=== PATIENT | female | born 1985 | race Caucasian/White ===

== ENCOUNTER → 2018-05-16 13:56 | Outpatient (CLI) | payer OTHER, SELFPAY ==
[2018-05-16 17:26] LABS: Chlamydia Trachomatis by PCR Negative (Negative); Neisserai gonorrhoeae by PCR Negative (Negative); Probe Check PASS; Sample Adequacy Control PASS; Specimen Processing Control PASS
[2018-05-20 08:10] LABS: HPV APTIMA, High Risk Negative (Negative)
== END ==
PROVIDERS: Referring Provider Obstetrics & Gynecology; Visit Provider Obstetrics & Gynecology
DX: Z32.01 Encounter for pregnancy test, result positive (principal); Z12.4 Encounter for screening for malignant neoplasm of cervix; Z11.3 Encounter for screening for infections with a predominantly sexual mode of transmission
CPT/HCPCS: 87491; 87591; 88175; G0145

== ENCOUNTER → 2018-06-16 14:26 | Outpatient (CLI) | payer OTHER, SELFPAY ==
[2018-06-16 15:47] LABS: Absolute Lymphocyte Count 1.63 X10^3/ul (0.83-4.51); Absolute Neutrophil Count 4.5 X10^3/uL (2.0-7.7); Basophil# 0.02 X10^3/uL; Basophil% 0.3 % (0-1); Eosinophil# 0.06 X10^3/uL; Eosinophils% 0.9 % (0-5); Hematocrit 35.7 % (37-47); Hemoglobin 11.9 g/dl (12.0-15.0); Lymphocyte # 1.63 X10^3/ul (4.0); Lymphocyte % 24.5 % (19-41); Mean Corp Hgb Conc 33.3 g/gl (32-36); Mean Corpuscular Hgb 29.1 pg (27.0-32.0); Mean Corpuscular Volume 87.3 fL (81-99); Mean Platelet Vol. 10.8 fl (6.2-12.0); Monocyte# 0.41 X10^3/uL; Monocyte% 6.2 % (0-10); Neutrophil # 4.51 X10^3/uL (2.7-7.7); Neutrophil % 67.9 % (47-70); POSITIVE COUNT NO; POSITIVE DIFFERENTIAL NO; POSITIVE MORPHOLOGY NO; Platelet Count 208 K/mm3 (150-450); RBC Distribution Width SD 41.7 fl (35.1-43.9); Red Blood Count 4.09 M/mm3 (4.2-5.4); White Blood Count 6.6 K/mm3 (4.4-11.0)
[2018-06-16 15:57] LABS: Thyroid Stim Hormone (TSH) 0.52 uIU/mL (0.358-3.74)
[2018-06-16 16:05] LABS: Glucose, Dipstick Normal (Normal); Ketone-Dipstick Negative (Negative); Leukocyte Esterase-Dipstick 25 /ul (Negative); Nitrite-Dipstick Negative (Negative); Occult Blood-Urine 50 /ul (Negative); Protein-Dipstick Negative (Negative); Urine Bilirubin Dipstick Negative (Negative); Urine Urobilinogen Normal (Normal); Urine pH 6.5 (5.0 - 8.0)
[2018-06-16 16:07] LABS: Color, Urine Yellow (Yellow); Urine Clarity Clear (Clear)
[2018-06-16 16:30] LABS: Amphetamine Urine VISTA NEGATIVE (<1000 ng/mL); Barbiturate Urine VISTA NEGATIVE (< 200 ng/mL); Benzodiazepine Urine VISTA NEGATIVE (< 200 ng/mL); Cocaine Urine VISTA NEGATIVE (< 300 ng/mL); Ecstacy Urine VISTA NEGATIVE (< 500 ng/mL); Methadone Urine VISTA NEGATIVE (< 300 ng/mL); PCP Urine VISTA NEGATIVE (< 25 ng/mL); THC Urine VISTA NEGATIVE (< 50 ng/mL); Vista UDS pH Range 6
[2018-06-16 16:37] LABS: HIV - WCH Non-Reactive (Nonreactive); Rubella IgG 123.7 IU/mL; Vitamin D,25 Hydroxy 26.4 ng/mL (29.95-100.01)
[2018-06-17 03:51] LABS: Prenatal RPR NONREACTIVE (NONREACTIVE)
[2018-06-18 10:56] LABS: HEPATITIS B SURFACE AG Negative (Negative); Hep C Antibodies <0.1 s/co ratio (0.0-0.9)
== END ==
PROVIDERS: Visit Provider Obstetrics & Gynecology
DX: Z34.81 Encounter for supervision of other normal pregnancy, first trimester (principal)
CPT/HCPCS: 36415; 80307; 81002; 82306; 84443; 85025; 86703; 86762; 86803; 87086; 87088; 87340

== ENCOUNTER → 2018-09-27 08:44 | Outpatient (CLI) | payer OTHER, SELFPAY ==
[2018-09-27 10:41] LABS: Hematocrit 34.1 % (37-47); Hemoglobin 11.3 g/dl (12.0-15.0); Mean Corp Hgb Conc 33.1 g/gl (32-36); Mean Corpuscular Hgb 29.7 pg (27.0-32.0); Mean Corpuscular Volume 89.7 fL (81-99); Mean Platelet Vol. 10.8 fl (6.2-12.0); Platelet Count 208 K/mm3 (150-450); RBC Distribution Width CV 13.9 % (11.6-14.6); Scan Indicated on CBC? Y/N NO; White Blood Count 7.6 K/mm3 (4.4-11.0)
[2018-09-27 10:46] LABS: Glucose Challenge Gest 1H 50g 141 mg/dL (70-140)
== END ==
PROVIDERS: Visit Provider Obstetrics & Gynecology
DX: Z34.83 Encounter for supervision of other normal pregnancy, third trimester (principal)
CPT/HCPCS: 36415; 82950; 85027

== ENCOUNTER → 2018-10-13 06:46 | Outpatient (CLI) | payer OTHER, SELFPAY ==
[2017-05-16 11:35] VITALS: BMI 32.3
[2018-10-13 07:51] LABS: Glucose GTT-Gestation. Fasting 77 mg/dL (<105)
[2018-10-13 08:41] LABS: Glucose GTT-Gestational 1 Hr 185 mg/dL (<190)
[2018-10-13 10:02] LABS: Glucose GTT-Gestational 2 Hr 129 mg/dL (<165)
[2018-10-13 10:53] LABS: Glucose GTT-Gestational 3 Hr 49 L (<145)
== END ==
PROVIDERS: Family Provider Family Medicine; PCP Family Medicine; Referring Provider Obstetrics & Gynecology; Visit Provider Obstetrics & Gynecology
DX: O99.810 Abnormal glucose complicating pregnancy (principal); Z3A.00 Weeks of gestation of pregnancy not specified
CPT/HCPCS: 36415; 82951; 82952

== ENCOUNTER → 2018-11-24 11:56 | Outpatient (CLI) | payer OTHER, SELFPAY | PROVIDERS: Family Provider Family Medicine; PCP Family Medicine; Visit Provider Obstetrics & Gynecology | DX: Z36.85 Encounter for antenatal screening for Streptococcus B (principal) | CPT/HCPCS: 87081 ==

== ENCOUNTER 2018-12-29 00:30 | Inpatient (IN) | payer OTHER, SELFPAY ==
[2017-05-16 11:35] VITALS: BMI 32.3
[2018-12-29] MEDS: Lactated Ringers 1,000 ML 50 ML IV ×2 (00:40→01:45)
[2018-12-29 00:55] LABS: Absolute Lymphocyte Count 2.33 X10^3/ul (0.83-4.51); Absolute Neutrophil Count 6.4 X10^3/uL (2.0-7.7); Basophil# 0.03 X10^3/uL; Basophil% 0.3 % (0-1); Eosinophil# 0.13 X10^3/uL; Eosinophils% 1.4 % (0-5); Hematocrit 34.5 % (37-47); Hemoglobin 11.7 g/dl (12.0-15.0); Lymphocyte # 2.33 X10^3/ul (4.0); Lymphocyte % 24.4 % (19-41); Mean Corp Hgb Conc 33.9 g/gl (32-36); Mean Corpuscular Hgb 28.7 pg (27.0-32.0); Mean Corpuscular Volume 84.8 fL (81-99); Mean Platelet Vol. 10.6 fl (6.2-12.0); Monocyte# 0.67 X10^3/uL; Neutrophil # 6.36 X10^3/uL (2.7-7.7); Neutrophil % 66.6 % (47-70); POSITIVE COUNT NO; POSITIVE DIFFERENTIAL NO; POSITIVE MORPHOLOGY NO; Platelet Count 248 K/mm3 (150-450); RBC Distribution Width CV 13.4 % (11.6-14.6); RBC Distribution Width SD 40.8 fl (35.1-43.9); Red Blood Count 4.07 M/mm3 (4.2-5.4); White Blood Count 9.6 K/mm3 (4.4-11.0)
[2018-12-29] MEDS: fentaNYL-bupivacaine (epidural) 100 ML BAG EPIDURAL (01:39)
--- NOTE | 2018-12-29 02:10 | DCINST_ITS ---
Discharge Diet: No Restrictions Discharge Activity: Return to Normal Activity, May Drive, May Shower Return to work on:: 02/13/19 May shower in (days): 0 May resume sexual activity in: 4-6 weeks Call your doctor if your incision/area has: Sudden Increased Bleeding, Increased Pain/ Swelling, Foul Smelling Discharge Call your doctor if you observe: Fever of 101 or Higher, Inability to urinate, Inability to have a bowel movement, Using more than one pad per hour, Shortness of breath, Chest pain, Calf discomfort, Uncontrolled pain Cleanse incision/area with: Soap & Water Additional Instructions: If you experience any of the following, contact your healthcare provider. * Bleeding that soaks a pad every hour for 2 hours * Fever 100.4 or higher * Unrelieved incision or abdominal pain * Swelling, redness, discharge or bleeding from your incision or episiotomy site * Your incision begins to separate * Problems urinating (including inability to urinate or burning while urinating). * Visual changes * Severe headache * Flu-like symptoms * Pain or redness in one of both of your breasts * Pain, warmth, tenderness or swelling in your legs, especially the calf area * Frequent nausea and vomiting * Symptoms of depression or anxiety If you experience any of the following, call 911 or go to the nearest Emergency Room. * Chest pain * Problems breathing * Seizure activity * Partial or complete paralysis of a body part, slurred speech, weakness or drooping of the face, or a sudden inability to walk or hold your balance Allergies/Adverse Reactions: Allergies Sulfa (Sulfonamide Antibiotics) Allergy (Verified 02/27/16 15:29) Hives Medications to take at Discharge Ibuprofen [Motrin] 800 mg PO TID PRN PRN #30 tablet 05/18/17 Ibuprofen [Motrin] 600 mg PO Q6H PRN PRN #30 tab 12/29/18 Pnv No.95/Ferrous Fum/Folic AC [ Formula] 1 ea PO DAILY #30 tab 12/29/18 The following prescriptions were given: Ibuprofen [Motrin] 600 mg PO Q6H PRN PRN #30 tab PRN Reason: pain or cramping Pnv No.95/Ferrous Fum/Folic AC [ Formula] 1 ea PO DAILY #30 tab Please Follow Up With: Demi Padilla MD When: 6 weeks Primary Care Physician: Braxton Wilkes III, MD [Primary Care Provider] - Test Results: Test results from this visit will be discussed in further detail at your follow- up appointment, if applicable. Proposed Discharge Date: 12/31/18
--- NOTE | 2018-12-29 02:10 | PCM.OPRPT ---
Problem List (1) Active labor at term Status: Acute (2) Previous section Status: Chronic Vaginal Delivery Maternal Presentation: Active Labor Presents at 41w3d ega in active labor. History of previous C/S and one subsequent vaginal delivery Amniotic Membrane Rupture Type: Artificial Rupture of Membrane time: 0200 Amniotic Fluid Description: Clear Final LINDA: 12/20/18 Final LINDA Source: US <20 weeks Gestational age: 41 Weeks and 2 Days Date of Procedure: 12/29/18 Pre-Operative Diagnosis: labor Post-Operative Diagnosis: same Surgery/ Procedure Performed: Spontaneous Vaginal Delivery Anesthesiologist: Michael Harrison Type of Anesthesia: Epidural Description of Procedure: Progressed to FD then pushed for about 20 minutes to delivery a live male without complication. There was a loose nuchal cord that was reduced at delivery. Delayed cord clamping was employed. The cord was clamped and cut. There was an active cry within the first few seconds after delivery. The placenta delivered spontaneously intact. The uterus contracted well. Inspection revealed an intact cervix, vaginal, and perineum. Presentation: Vertex Placental Delivery Description: Spontaneous Placenta Disposition: [facility] Percentage of Placenta Abruption: 0 Cord Vessel Description: 3 Vessels Nuchal Cord Compression: Without compression Cord Entanglement: Around neck x 1, loose Estimated Blood Loss: 200cc Infant A gender: Male (1 minute): 9 (5 minute): 9 Episiotomy Description: None Laceration: None Medications given after delivery: IV Pitocin Complications: None
[2018-12-29] MEDS: Oxytocin 30 units/NS 500 ml 30 UNITS/500 ML IV.SOLN 334 UNITS IV (02:33)
[2018-12-29 02:54] VITALS: BMI 30.3
[2018-12-29] MEDS: Oxytocin 30 units/NS 500 ml 30 UNITS/500 ML IV.SOLN 167 UNITS IV (03:05)
[2018-12-29 04:30] VITALS: BP 114/53; PULSE 58; RESP 16; TEMP 36.7; O2SAT 99
[2018-12-29] MEDS: Ibuprofen 600 MG Tablet PO ×2 (07:21→14:22)
[2018-12-29 09:00] VITALS: BP 118/62; PULSE 56; RESP 16; TEMP 36.5
[2018-12-29] MEDS: Acetaminophen 500 MG Tablet 1000 MG PO (10:11)
[2018-12-29 13:00] VITALS: BP 125/73; PULSE 49; RESP 16; TEMP 36.7
[2018-12-29 16:26] VITALS: BP 123/52; PULSE 54; RESP 16; TEMP 36.6
[2018-12-29 20:50] VITALS: BP 120/65; PULSE 61; RESP 18; TEMP 36.8
[2018-12-30 00:16] VITALS: BP 123/60; PULSE 51; RESP 16; TEMP 36.5
[2018-12-30 04:51] VITALS: BP 113/62; PULSE 48; RESP 16; TEMP 36.6
[2018-12-30 05:54] LABS: Hematocrit 31.6 % (37-47); Hemoglobin 10.4 g/dl (12.0-15.0); Mean Corp Hgb Conc 32.9 g/gl (32-36); Mean Corpuscular Hgb 28.4 pg (27.0-32.0); Mean Corpuscular Volume 86.3 fL (81-99); Mean Platelet Vol. 10.3 fl (6.2-12.0); Platelet Count 178 K/mm3 (150-450); RBC Distribution Width CV 13.5 % (11.6-14.6); RBC Distribution Width SD 41.4 fl (35.1-43.9); Red Blood Count 3.66 M/mm3 (4.2-5.4); White Blood Count 7.2 K/mm3 (4.4-11.0)
[2018-12-30 05:55] LABS: Scan Indicated on CBC? Y/N NO
--- NOTE | 2018-12-30 07:35 | PCM.PN.OB ---
Patient Problems: Active and Suspected Problems Active labor at term (Acute) Subjective: PPD#1 Doing well. Nursing. Would like RX RF for her compounded nipple cream, Nipple Reviving Ointment No concerns voiced otherwise. - Physical Exam General: Alert, Oriented x3, Cooperative, No apparent distress HEENT: Atraumatic Neck: Supple Neurological: Cranial nerves II-XII grossly intact Psych/Mental Status: Normal Affect Vital Signs Temp Pulse Resp BP Pulse Ox 97.9 F 48 L 16 113/62 99 12/30/18 04:51 12/30/18 04:51 12/30/18 04:51 12/30/18 04:51 12/29/18 04:30 Oxygen Delivery Method Room Air Weight: 85.275 kg Body Mass Index (BMI) 30.3 Intake and Output for Last 24 Hours 12/28/18 12/29/18 12/30/18 23:59 23:59 23:59 Intake Total 1521 / 1521 Output Total 1000 / 1000 Balance 521 / 521 Laboratory Tests Past 24 Hrs 12/30/18 05:45 WBC 7.2 RBC 3.66 L Hgb 10.4 L Hct 31.6 L MCV 86.3 MCH 28.4 MCHC 32.9 RDW 13.5 RDW Differential 41.4 Plt Count 178 MPV 10.3 Medical Necessity - Tobacco Use Smoking Status: Never smoker Assessment/Plan All Active Problems Active labor at term (Acute) Vaginal after () (Acute) PPD#1 Stable pp. Dischg home this afternoon if remains stable (pt request)
[2018-12-30 09:03] VITALS: BP 101/52; PULSE 63; RESP 18; TEMP 36.7; O2SAT 97
[2018-12-30 14:08] VITALS: BP 121/69; PULSE 53; RESP 18; TEMP 37; O2SAT 97
== END 2018-12-30 16:45 | disposition home or self-care (01) | DRG 807 ==
PROVIDERS: Admitting Provider Obstetrics & Gynecology; Family Provider Family Medicine; PCP Family Medicine; Referring Provider Obstetrics & Gynecology; Visit Provider Obstetrics & Gynecology
DX: O48.0 Post-term pregnancy (principal); Z37.0 Single live birth; O34.219 Maternal care for unspecified type scar from previous cesarean delivery; O69.81X0 Labor and delivery complicated by cord around neck, without compression, not applicable or unspecified; Z3A.41 41 weeks gestation of pregnancy
CPT/HCPCS: 59025; 59050; 85025; 85027; 86850; 86900; 99218; J7120; G0378

== ENCOUNTER → 2021-06-11 16:23 | Outpatient (CLI) | payer OTHER, SELFPAY ==
[2021-06-11 17:39] LABS: Absolute Lymphocyte Count 1.79 X10^3/uL (0.83-4.51); Absolute Neutrophil Count 4.1 X10^3/uL (2.0-7.7); Basophil# 0.06 X10^3/uL; Basophil% 0.9 % (0-1); Eosinophils% 4.4 % (0-5); Hematocrit 36.8 % (37-47); Hemoglobin 12.2 g/dL (12.0-15.0); Lymphocyte # 1.79 X10^3/ul (0.83-4.51); Lymphocyte % 26.2 % (19-41); Mean Corp Hgb Conc 33.2 g/dL (32-36); Mean Corpuscular Volume 87.6 fL (81-99); Mean Platelet Vol. 10.6 fl (6.2-12.0); Monocyte# 0.56 X10^3/uL; Monocyte% 8.2 % (0-10); NRBC Flagged by Analyzer 0 % (0-5); Neutrophil # 4.08 X10^3/uL (2.7-7.7); Neutrophil % 59.9 % (47-70); Platelet Count 219 K/mm3 (150-450); RBC Distribution Width CV 12.8 % (11.6-14.6); RBC Distribution Width SD 41.1 fl (35.1-43.9); White Blood Count 6.8 K/mm3 (4.4-11.0)
[2021-06-11 17:48] LABS: Color, Urine Yellow (Yellow); Glucose, Dipstick Normal (Normal); Ketone-Dipstick Negative (Negative); Leukocyte Esterase-Dipstick Negative /ul (Negative); Nitrite-Dipstick Negative (Negative); Occult Blood-Urine Negative /ul (Negative); Protein-Dipstick Negative (Negative); Specific Gravity, Urine 1.015 (1.002-1.030); Urine Bilirubin Dipstick Negative (Negative); Urine Clarity Sl. Cloudy (Clear); Urine Urobilinogen Normal (Normal)
[2021-06-11 18:08] LABS: Amphetamine Urine VISTA NEGATIVE (<1000 ng/mL); Barbiturate Urine VISTA NEGATIVE (< 200 ng/mL); Benzodiazepine Urine VISTA NEGATIVE (< 200 ng/mL); Cocaine Urine VISTA NEGATIVE (< 300 ng/mL); Ecstacy Urine VISTA NEGATIVE (< 500 ng/mL); Methadone Urine VISTA NEGATIVE (< 300 ng/mL); PCP Urine VISTA NEGATIVE (< 25 ng/mL); THC Urine VISTA NEGATIVE (< 50 ng/mL); Vista UDS pH Range 6
[2021-06-12 08:55] LABS: HIV - WCH Non-Reactive (Nonreactive); Hepatitis B Surface Antigen Non-Reactive (Nonreactive); Hepatitis C Antibody Non-Reactive (Nonreactive); Rubella IgG Reactive (Nonreactive); Syphilis Antibodies Non-reactive
[2021-06-14 10:08] LABS: Chlamydia By Nucleic Acid AMP Negative (Negative)
[2021-06-14 10:15] LABS: Gonococcus By Nucleic Acid AMP Negative (Negative)
[2021-06-17 16:31] LABS: HPV APTIMA, High Risk Negative (Negative)
== END ==
PROVIDERS: PCP Family Medicine; Visit Provider Obstetrics & Gynecology
DX: Z34.82 Encounter for supervision of other normal pregnancy, second trimester (principal); Z12.4 Encounter for screening for malignant neoplasm of cervix; Z11.3 Encounter for screening for infections with a predominantly sexual mode of transmission
CPT/HCPCS: 36415; 80307; 81002; 84443; 85025; 86703; 86762; 86780; 86803; 87086; 87088; 87340; 87491; 87591; 87624; 88175; G0145

== ENCOUNTER 2021-10-01 13:22 | Outpatient (CLI) | payer OTHER, SELFPAY ==
[2021-10-01 13:55] LABS: Hematocrit 32.7 % (37-47); Hemoglobin 11.4 g/dL (12.0-15.0); Mean Corp Hgb Conc 34.9 g/dL (32-36); Mean Corpuscular Hgb 31.4 pg (27.0-32.0); Mean Corpuscular Volume 90.1 fL (81-99); Mean Platelet Vol. 10.5 fl (6.2-12.0); Platelet Count 221 K/mm3 (150-450); RBC Distribution Width CV 13.4 % (11.6-14.6); RBC Distribution Width SD 44.1 fl (35.1-43.9); Red Blood Count 3.63 M/mm3 (4.2-5.4); White Blood Count 8.3 K/mm3 (4.4-11.0)
[2021-10-01 14:01] LABS: Glucose Challenge Gest 1H 50g 103 mg/dL (70-140)
[2021-10-01 17:34] LABS: Ferritin 6 ng/mL (8-252)
== END 2021-10-01 23:59 | disposition home or self-care (01) ==
LOC: WOBLAB 13:23
PROVIDERS: Visit Provider Obstetrics & Gynecology
DX: O99.02 Anemia complicating childbirth (principal); D50.8 Other iron deficiency anemias; Z3A.00 Weeks of gestation of pregnancy not specified
CPT/HCPCS: 36415; 82728; 82950; 85027

== ENCOUNTER → 2021-11-26 | Outpatient (CLI) | payer OTHER, SELFPAY | END | disposition home or self-care (01) | LOC: LABSPEC 14:55 | PROVIDERS: Visit Provider Obstetrics & Gynecology | DX: Z36.85 Encounter for antenatal screening for Streptococcus B (principal) | CPT/HCPCS: 87081 ==

== ENCOUNTER 2021-12-14 21:45 | Outpatient (CLI) | payer OTHER, SELFPAY ==
[2021-12-14 21:56] VITALS: TEMP 37.2
[2021-12-14 21:57] VITALS: BP 129/60; PULSE 90
[2021-12-14 22:26] VITALS: BMI 31.0
[2021-12-14] MEDS: Acetaminophen 500 MG Tablet 1000 MG PO (23:18)
[2021-12-14 23:57] VITALS: TEMP 37.2
--- NOTE | 2021-12-15 10:03 | OB.TRI.NOTE ---
HPI - General HPI Narrative MU SANTOS, is a 36 F who presents to labor and delivery with some contractions and low back pain at 38 weeks 6 days gestation. care remarkable for a prior section. PFSH PFSH Home Medications PNV cmb#95-ferrous fumarate-FA 1 ea PO DAILY #30 tab 12/29/18 [Rx Last Taken Unknown] Allergy/AdvReac Type Severity Reaction Status Date / Time Sulfa (Sulfonamide Allergy Hives Verified 12/14/21 22:06 Antibiotics) Social History Smoking Status: Never smoker History Elective abortions Hx Para 2 Spontaneous abortions Hx # Term Pregnancies Ectopic pregnancies Hx # Pregnancies Multiple births # of living children NST FHR Rate Baby A NST Reactive:: Yes FHR Category:: Category I Uterine Activity:: Some contractions noted on monitor Assessment & Plan (1) False labor, antepartum: PLAN: 38 weeks 6-day gestation with false labor. Cervix unchanged after observing for about 2 hours. Reactive nonstress test. Will discharge to home with routine labor instructions.
== END 2021-12-15 00:08 | disposition home or self-care (01) ==
LOC: WPOUT 21:50 → WP 21:50
PROVIDERS: Visit Provider Obstetrics & Gynecology
DX: O47.1 False labor at or after 37 completed weeks of gestation (principal); Z3A.38 38 weeks gestation of pregnancy; O26.23 Pregnancy care for patient with recurrent pregnancy loss, third trimester; O34.219 Maternal care for unspecified type scar from previous cesarean delivery
CPT/HCPCS: 59025; 59050; 99218; G0378

== ENCOUNTER 2021-12-27 18:50 | Inpatient (IN) | payer OTHER, SELFPAY ==
[2021-12-27] VITALS (18 sets, daily range): BP systolic 120–143; BP diastolic 57–71; PULSE 55–90; TEMP 36.6–36.9; O2SAT 97–100; BMI 30.7
[2021-12-27] MEDS: Lactated Ringers 1,000 ML 50 ML IV (19:05)
[2021-12-27] MEDS: Lactated Ringers 500 ML 999 ML IV (19:13)
--- NOTE | 2021-12-27 19:18 | PCM.HP.BLA ---
History and Physical Date of Admission: 12/27/21 ACOG ANTEPARTUM RECORD - HISTORY AND PHYSICAL (12/27/2021) Name: ELVA BLANKENSHIP History of this : This is a 36 year old [id number] presents at 40 wks + 5 days gestation in active labor. OB Physician: Demi Santos MD [place] Physician: [facility] [place] ...................................................................... : 1985 Age: 36 Address: [address] [place] [address] Phone: [phone] Insurance Carrier: [employer] [id number] Emergency Contact: ...................................................................... Final LINDA: 12/22/21 By Ultrasound: 11 weeks 4 days PARITY: (G-Total Pregnancies P-Fullterm,Premature,Induced AB,Spont AB, Ectopics, Multiple,Living) LINDA CONFIRMATION: By LMP: 03/17/21 Initial Exam: 05/13/17 By First Ultrasound Exam: 05/07/17 Final LINDA: 12/22/21 OB PROBLEM LIST: EPDS 0. ALLERGIC TO SULFA! Prior C/S x 1, followed by 2 VBACS ALLERGIES: Sulfa (Sulfonamide Antibiotics) Hives and/or rash MEDICATIONS: ferrous sulfate 325 mg (65 mg iron) tablet 1 po bid + DHA 28 mg iron- 975 mcg-200 mg combo pack daily SOCIAL HISTORY: Smoking - Never Alcohol Use - socially not while Diet - balanced Diet, One cup of coffee daily and Water intake 1-2 liters Lifestyle - Exercise - active and Boot camp class twice weekly. 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 Illicit Drug Use - denies use of street drugs Sexual Activity - Residence - lives with Place of - [place], [place] Hours Worked - 32 hrs per week Spouse-Sig Other Name - Casey Blankenship Spouse-Sig Other Occupation - [employer] Spouse-Sig Other Phone No - [phone] Children Name(s) - Roberto '16, Swapna '17, Jorge(19) PRIOR DELIVERY HISTORY DEL DATE GEST LAB WT LB WT OZ TYPE ANES LABOR TX 08 May 25 41 8 7 7 Vag Epidural No Feb 21 38 10 7 6 C-Sec General No December 25 41 4 7 14 Vag Epidural No ANTEPARTUM FLOW CHART VISIT GE RTC FU F F OR U U DATE WK MD WKS HT PN HR M SS BP ED WT OR GL D EF ST __ ____ ___ __ __ ___ __ __ __ ___ __ __ __ ___ __ December SHM 1 38 V + + 100/64 sl 193 - - 3 50 -3 December SHM 1 39 V + + 120/76 0 193 - - 2 50 -3 03 December JM 1 38 V + + 114/66 sl 195 - - 26 Nov 37 SHM 1 37 V + + 100/68 sl 195 - - 20 Nov 36 SHM 1 36 ? + + 116/66 0 191 - - 1+ 50 -5 05 Nov 34 SHM 2 34 B + + 110/62 0 188 - - Oct JM 2 32 V + + 104/60 0 187 - - 23 Oct 06 SHM 2 28 V + + 100/58 0 188 tr - Sep 01 SHM 4 24 ? + + 90/50 o 181 ne ne Jul 28 SHM 4 20 + + 118/60 0 175 - - ANTEPARTUM NOTE(S): Dec 23 2021: uncomfortable Dec 16 2021: see note Dec 09 2021: Dec 02 2021: see note Nov 26 2021: Nov 11 2021: no concerns Oct 28 2021: Oct 01 2021: doing well Sep 02 2021: Aug 07 2021: Sono Today, FM noted, US OK COMPREHENSIVE ANTEPARTUM NOTE(S): Dec 23 2021: Membranes stripped. Declines IOL, continue expectant management with NST next week if undelivered. Dec 16 2021: Cold vs allergy sx. Advised trial of Zyrtec. FM, labor, SROM reviewed. LMT Dec 16 2021: Seen in L over the weekend 2cm dilation. SVE unchanged today. Preeclampsia, labor, FM precautions. Dec 09 2021: H taken to OB. tkg Dec 09 2021: Elva is 38w1d here for PNV good FM slight edema. No concerns would like cervical check. BR Dec 09 2021: 38wks, no complaints. JM Dec 02 2021: Declines cervix ck today. Reviewed FM, SROM, and labor. Planning . Consider cervix ck next week. LMT Dec 02 2021: US today, EFW 3077g (52nd%), RANDI 23.5cm, MBP 7cm. BPP 8/8. CEPHALIC. Will plan US in labor. TOLAC planned. Nov 26 2021: Elva is 36w2d here for PNV good FM no edema. GBS LARC today. No concerns. Would like cervix checked. BR Nov 26 2021: Suspect variable lie. US next visit to confirm position, RANDI. Labor, ROM, FM precautions. TOLAC planned. Pt desires tubal sterilization if has unplanned section. Recommend bilateral salpingectomy - risks, benefits reviewed - pt understands permanence. Nov 11 2021: Elva is here for a pnv at 34/1. Good FM. No edema present. Denies questions/ concerns. Discussed Tdap vaccine. MK Oct 28 2021: Elva is 32w1d here for PNV good FM no edema doing well no concerns. BR Oct 28 2021: 32 weeks, no complaints. JM Oct 01 2021: Reviewed FM, PTL, PROM. Encouraged Tdap vaccine. GCT, CBC today. LMT Oct 01 2021: Discussed PPBC, pt considering if desires tubal sterilization if has unplanned C/S. Sep 02 2021: NOB NURSE VISIT-- Elva is a G 4 P 3 w LINDA 12-22-[address] [facility] [place] w epidural, using [facility] for post disch ped care and to breastfeeed. Her first pg was a PCS and she's had two successful VBACs since then. Her last labor was only four hours long. She works 32h/w at [employer]. Casey is a brito. They're pleased with this planned . Their children Aug 07 2021: Doing well, no complaints. Anatomy scan today, wnl, EFW 84th%, SEX unknown. No previa, ok for . NEW Jun 11 2021: Elva is here for missed menses appt. She relates LMP of 8/9, +UPT today in office, approx EDC 12/22/21 which makes her 12 weeks and 2 days. She relates her nausea is improving but is still pretty tired. Otherwise doing well. She plans a again, successful x2. Educational materials are provided and reviewed. Encouraged healthy diet, increased po fluids as tolerated, and at least 30 kylie Jun 11 2021: as above. Elva is doing well. Notes fatigue, but no other complaints. Denies spotting or painfulness. She has hx LTCS followed by 2 VBACs, desires . Physically active, exercises several times a week with boot camp and notes she is already modifying exercises for . She has no plans for travel this . Did not receive the COVID19 vaccination, is on the fence at this time. m REVIEW OF SYSTEMS: GENERAL - Denies fever, or chills SKIN - Denies rash, new skin lesions, or change in moles EYES - Denies blurred vision, or change in visual acuity EARS - Denies ear pain, or difficulty hearing NOSE - Denies nasal congestion, discharge, or bleeding MOUTH - Denies sore throat, or difficulty swallowing NECK - Denies pain or swelling RESPIRATORY - Denies shortness of breath, cough, wheezing CARDIOVASCULAR - Denies palpitations, chest pain, orthopnea, PND, peripheral edema, syncope or claudication GASTROINTESTINAL - Denies nausea, vomiting, diarrhea, constipation, Denies abdominal pain, melena and or bright red blood GENITOURINARY - Denies dysuria, frequency of urination, urgency, or hesitancy MUSCULOSKELETAL - Denies joint or muscle pain, or back pain NEUROLOGICAL - Denies localized numbness, weakness, or tingling PSYCHIATRIC - Denies depression, anxiety, substance abuse or suicide attempts ENDOCRINE - Denies heat or cold intolerance, weight loss or gain, increasing thirst HEMATO-IMMUNOLOGIC - Denies easy bruising, bleeding, oral ulcerations or recurrent infections GENETICS SCREENING: Age 35+ years: No Thalassemia: No Neural Tube Defect: No Down Syndrome: No CHAPO-SACHS: No Sickle Cell Disease: No Hemophilia: No Musc. Dystrophy: No Cystic Fibrosis: No-declines screening [place] Chorea: No Mental Retardation: No Fragile X: No Other genetic: No Other defects: No SABs/still births: No Drugs since LMP: No INFECTION HISTORY: High risk AIDS: No High risk Hepatitis: No Exposed to TB: No Exposed to Herpes: No Rash/viral illness since LMP: No History of STD: No MENSTRUAL HISTORY: *Menses Amount/Duration: normal amountMenses Regularity: RegularFrequency: monthlyMenarche (Age Onset): 14* PAST SUMMARY: PARITY: 1. Total Pregnancies............ 4 2. Full Term Pregnancies........ 3 3. Premature.................... 0 4. Abortions - Induced.......... 0 5. Abortions - Spontaneous...... 0 6. Ectopics..................... 0 7. Multiple Births.............. 0 8. Living Children.............. 3 PAST #1: Date of :.................. 02/27/16 Gestation Weeks:................ 38 Length of labor(hours):......... 10 Sex:............................ M Weight-lbs:............... 7 Weight-oz:................ 6 Type of Delivery:............... C-Sect Type of Anesthesia:............. General Place of Delivery:.............. [facility] Treatment of Labor?:.... No Comment: NON-REASSURING FHT'S PAST #2: Date of :.................. 05/16/17 Gestation Weeks:................ 41 Length of labor(hours):......... 8 Sex:............................ F Weight-lbs:............... 7 Weight-oz:................ 7 Type of Delivery:............... Vag Type of Anesthesia:............. Epidural Place of Delivery:.............. [place] Treatment of Labor?:.... No Comment: PAST #3: Date of :.................. 12/29/18 Gestation Weeks:................ 41 Length of labor(hours):......... 4 Sex:............................ M Weight-lbs:............... 7 Weight-oz:................ 14 Type of Delivery:............... Vag Type of Anesthesia:............. Epidural Place of Delivery:.............. [place] Treatment of Labor?:.... No Comment: NONE PHYSICAL EXAMINATION General Appearence: 36 yo female in no acute distress Vital Signs: AF, VSS Heart: RRR without rubs or gallops Lungs: CTA x 2 Breasts: deferred Abdomen: gravid Pelvis: Cervix: 6/90 Presentation: cephalic Station: -2 Fetus: Size: AGA Movement: present Heart: present LAB TEST(S) ORDERED SINCE:03/27/21 06/17/2021 PAP IG HPV APTIMA 16/18,45 06/14/2021 CHLAMYDIA/GC ANETTE APTIMA 06/13/2021 URINE CULTURE 06/12/2021 RUBELLA IGG 06/12/2021 L509.8000 06/12/2021 HIV - [facility] 06/12/2021 HEPATITIS C ANTIBODY 06/12/2021 HEPATITIS B SURFACE ANTIGEN 06/11/2021 URINE DRUG SCREEN (VISTA) 06/11/2021 URINALYSIS, ROUTINE (DIPSTICK) 06/11/2021 THYROID STIM HORMONE (TSH) 06/11/2021 T AND S-NO CHARGE W/PNP 06/11/2021 CBC W/DIFF, AUTOMATED 11/29/2021 RULE OUT BETA STREP (GRP. B) 10/01/2021 GLUCOSE CHALLENGE GEST 1H 50G 10/01/2021 FERRITIN 10/01/2021 CBC-COMPLETE BLOOD CNT NO DIFF == ==== Order Observation Description Value Ref_Range A* Site == ==== RULE OUT BETA S NOTE ALLAN FERRITIN NOTE ALLAN FERRITIN FERRITIN 6 ng/mL 8-252 L ML GLUCOSE CHALLEN NOTE ALLAN GLUCOSE CHALLEN GLU GEST 50G 1H 103 mg/dL 70-140 ML CBC-COMPLETE BL NOTE ALLAN CBC-COMPLETE BL WBC 8.3 K/mm3 4.4-11.0 ML CBC-COMPLETE BL RBC 3.63 M/mm3 4.2-5.4 L ML CBC-COMPLETE BL HGB 11.4 g/dL 12.0-15.0 L ML CBC-COMPLETE BL HCT 32.7 37-47 L ML CBC-COMPLETE BL MCV 90.1 fL 81-99 ML CBC-COMPLETE BL MCH 31.4 pg 27.0-32.0 ML CBC-COMPLETE BL MCHC 34.9 g/dL 32-36 ML CBC-COMPLETE BL RDW CV 13.4 11.6-14.6 ML CBC-COMPLETE BL RDW SD 44.1 fl 35.1-43.9 H ML CBC-COMPLETE BL PLT 221 K/mm3 150-450 ML CBC-COMPLETE BL MPV 10.5 fl 6.2-12.0 ML URINE CULTURE NOTE ALLAN HEPATITIS C ANT NOTE ALLAN HEPATITIS C ANT HEPATITIS C AB Non-Reactive Nonreactive ML Non Reactive: < 0.8 Equivocal: >/= 0.8 to < 1.0 Reactive: >/= 1.0 The CDC recommends that a reactive/equivocal HCV antibody result be followed up by the HCV Nucleic Acid Amplification test (310007) HEPATITIS B ALEX NOTE ALLAN HEPATITIS B ALEX HEP B SURF AG Non-Reactive Nonreactive ML HIV - [facility] [place] NOTE ALLAN HIV - [facility] [place] HIV Non-Reactive Nonreactive ML L509.8000 NOTE ALLAN L509.8000 SYPHILIS ABS Non-reactive ML RUBELLA IGG NOTE ALLAN RUBELLA IGG RUBELLA IGG Reactive Nonreactive ML Antibody Results Interpretation of Immune Status Non Reactive Presumed Non-Immune Equivocal Equivocal Reactive Presumed Immune PN N [facility]~[address] [place], [address]~ T AND AB SCREEN GEL NEGATIVE ML URINE DRUG SCRE NOTE ALLAN URINE DRUG SCRE VISTA UDS PH 6 ML URINE DRUG SCRE AMPHETAMINES NEGATIVE <1000 ng/mL ML URINE DRUG SCRE BARBITIURATES NEGATIVE < 200 ng/mL ML URINE DRUG SCRE BENZODIAZIPINE NEGATIVE < 200 ng/mL ML URINE DRUG SCRE COCAINE NEGATIVE < 300 ng/mL ML URINE DRUG SCRE ECSTACY NEGATIVE < 500 ng/mL ML URINE DRUG SCRE METHADONE NEGATIVE < 300 ng/mL ML URINE DRUG SCRE OPIATES NEGATIVE < 300 ng/mL ML URINE DRUG SCRE PCP NEGATIVE < 25 ng/mL ML URINE DRUG SCRE THC NEGATIVE < 50 ng/mL ML THYROID STIM HO NOTE ALLAN THYROID STIM HO TSH 0.30 uIU/mL 0.358-3.74 L ML URINALYSIS, ROU NOTE ALLAN URINALYSIS, ROU COLOR Yellow Yellow ML URINALYSIS, ROU URINE CLARITY Sl. Cloudy Clear ML URINALYSIS, ROU GLUCOSE, UR Normal mg/dl Normal ML URINALYSIS, ROU BILIRUBIN URINE Negative mg/dL Negative ML URINALYSIS, ROU KETONE UR Negative mg/dl Negative ML URINALYSIS, ROU SP.GR. DIPSTX 1.015 1.002-1.030 ML URINALYSIS, ROU PH UR 7.0 5.0 - 8.0 ML URINALYSIS, ROU PROT DIPSTX Negative mg/dl Negative ML URINALYSIS, ROU UROBILI Normal mg/dl Normal ML URINALYSIS, ROU NITRITE Negative Negative ML URINALYSIS, ROU OCCULT BLOOD-UR Negative /ul Negative ML URINALYSIS, ROU LEUK ESTERASE Negative /ul Negative ML CBC W/DIFF, AUT NOTE ALLAN CBC W/DIFF, AUT WBC 6.8 K/mm3 4.4-11.0 ML CBC W/DIFF, AUT RBC 4.20 M/mm3 4.2-5.4 ML CBC W/DIFF, AUT HGB 12.2 g/dL 12.0-15.0 ML CBC W/DIFF, AUT HCT 36.8 37-47 L ML CBC W/DIFF, AUT MCV 87.6 fL 81-99 ML CBC W/DIFF, AUT MCH 29.0 pg 27.0-32.0 ML CBC W/DIFF, AUT MCHC 33.2 g/dL 32-36 ML CBC W/DIFF, AUT RDW CV 12.8 11.6-14.6 ML CBC W/DIFF, AUT RDW SD 41.1 fl 35.1-43.9 ML CBC W/DIFF, AUT PLT 219 K/mm3 150-450 ML CBC W/DIFF, AUT MPV 10.6 fl 6.2-12.0 ML CBC W/DIFF, AUT NEUT% 59.9 47-70 ML CBC W/DIFF, AUT LY% 26.2 19-41 ML CBC W/DIFF, AUT MONO% 8.2 0-10 ML CBC W/DIFF, AUT EO% 4.4 0-5 ML CBC W/DIFF, AUT BASO% 0.9 0-1 ML CBC W/DIFF, AUT IG% 0.400 0.0-0.9 ML IG% - Immature Granulocytes (promyelocytes, myelocytes and metamyelocytes) > 1% indicates that a LEFT SHIFT is Present. CBC W/DIFF, AUT ABSOLUTE NEUT 4.1 X10 3/uL 2.0-7.7 ML CBC W/DIFF, AUT ABSOLUTE LYMPH 1.79 X10 3/uL 0.83-4.51 ML CBC W/DIFF, AUT NUCLEATED RBC 0 0-5 ML PAP IG HPV APTI NOTE ALLAN PAP IG HPV APTI DIAG Comment . [facility] NEGATIVE FOR INTRAEPITHELIAL LESION OR MALIGNANCY. PAP IG HPV APTI ADEQ Comment . [facility] Satisfactory for evaluation. Endocervical and/or squamous metaplastic cells (endocervical component) are present. PAP IG HPV APTI PERFORM Comment . [facility] Antoinette Rodríguez, Supervisory Switchboard Receptionist (ASCP) This liquid based ThinPrep(R) pap test was screened with the use of an image guided system. PAP IG HPV APTI COMM . . LCI PAP IG HPV APTI PAPSMR Comment . LCI The Pap smear is a screening test designed to aid in the detection of premalignant and malignant conditions of the uterine cervix. It is not a diagnostic procedure and should not be used as the sole means of detecting cervical cancer. Both false-positive and false-negative reports do occur. PAP IG HPV APTI HPV APTIMA, HR Negative Negative LCI This nucleic acid amplification test detects fourteen high- risk HPV types (16,18,31,33,35,39,45,51,52,56,58,59,66,68) without differentiation. Performed at: [address] [id number] General Merchandise Manager: Chelsie Grijalva MD, Phone: [phone] Performed at: =[address] [id number] General Merchandise Manager: Chelsie Grijalva MD, Phone: [phone] CHLAMYDIA/GC NA NOTE ALLAN CHLAMYDIA/GC NA CHLAMY,NUC ACID Negative Negative [facility] CHLAMYDIA/GC NA GC BY NUC ACID Negative Negative [facility]CI Performed at: =[address] [place] [id number] General Merchandise Manager: Chelsie Grijalva MD, Phone: [phone] Group B Beta Streptococcus is not isolated. Mixed Gram Positive Organisms [place] Count 1000-10,000 MIXC Mixed contaminants. Submit a new specimen if indicated. B POSITIVE == ==== Impression /Plan: 40 wks + 5 days intrauterine in labor. Preparations in progress for delivery.
[2021-12-27] MEDS: Oxytocin 30 units/NS 500 ml 30 UNITS/500 ML IV.SOLN 334 UNITS IV (19:48)
[2021-12-27 19:56] LABS: Absolute Lymphocyte Count 1.87 X10^3/uL (0.83-4.51); Absolute Neutrophil Count 8.1 X10^3/uL (2.0-7.7); Basophil# 0.04 X10^3/uL; Basophil% 0.4 % (0-1); Eosinophil# 0.15 X10^3/uL; Eosinophils% 1.4 % (0-5); Hematocrit 36.2 % (37-47); Hemoglobin 12.5 g/dL (12.0-15.0); Lymphocyte # 1.87 X10^3/ul (0.83-4.51); Mean Corp Hgb Conc 34.5 g/dL (32-36); Mean Corpuscular Hgb 30.6 pg (27.0-32.0); Mean Corpuscular Volume 88.7 fL (81-99); Mean Platelet Vol. 11.2 fl (6.2-12.0); Monocyte# 0.77 X10^3/uL; NRBC Flagged by Analyzer 0 % (0-5); Neutrophil # 8.07 X10^3/uL (2.7-7.7); Neutrophil % 73.6 % (47-70); Platelet Count 235 K/mm3 (150-450); RBC Distribution Width CV 12.9 % (11.6-14.6); Red Blood Count 4.08 M/mm3 (4.2-5.4)
--- NOTE | 2021-12-27 20:00 | EX.PCM.OBRPT ---
Maternal Data Information Final LINDA: 12/22/21 Gestational age: 40w 5 d Vaginal Delivery Maternal Presentation Maternal Presentation: Active Labor Operative Information Date of Procedure: 12/27/21 Pre-Operative Diagnosis: IUP, Prior Section Post-Operative Diagnosis: IUP, Prior Section Surgery / Procedure Performed: Spontaneous Vaginal Delivery and Type of Anesthesia: None Estimated Blood Loss: 250 cc Fluids Replaced: Crystalloid Findings Description of Procedure: Spontaneous vaginal delivery of a viable male with Apgars of 8/9 from an occiput anterior presentation with clear amniotic fluid and normal three-vessel placenta. Cord around the neck x2 loose. No episiotomy or laceration. Sponges okay. Delivery physician: Jorge Loredo MD. Presentation: Vertex Amniotic Membrane Rupture Type: Artificial Amniotic Fluid Description: Clear Placental Delivery Description: Spontaneous Placenta Disposition: [facility] Cord Vessel Description: 3 Vessels Cord Entanglement: Around neck x 2, loose A Gender: Male (1 minute): 8 (5 minute): 9 Post Vaginal Delivery Medications Given After Delivery: IV Pitocin Episiotomy Description: None Laceration: None Complication Complications: None
[2021-12-27] MEDS: Ibuprofen 600 MG Tablet PO (20:30)
[2021-12-27] MEDS: 0.9% Saline Lock 10 ML Syringe IV (22:30)
[2021-12-28] VITALS (10 sets, daily range): BP systolic 116–131; BP diastolic 58–61; PULSE 51–60; RESP 16–18; TEMP 36.4–36.8; O2SAT 96–98
[2021-12-28] MEDS: Ibuprofen 600 MG Tablet PO ×2 (03:51→10:30)
[2021-12-28] MEDS: Acetaminophen 500 MG Tablet 1000 MG PO (06:40)
--- NOTE | 2021-12-28 07:18 | NURSING ---
report given to Chirag Marmolejo RN who is assuming care of pt at this time
--- NOTE | 2021-12-28 18:08 | PN.OBGYN_ITS ---
Subjective Subjective Doing well. Wants to go home later today if baby is able to go. Family in rrom. Objective Data Objective Data Vital Signs: Vital Signs Temp Pulse Resp BP Pulse Ox 97.8 F 56 L 16 118/61 98 12/28/21 17:47 12/28/21 17:48 12/28/21 17:47 12/28/21 17:48 12/28/21 17:47 Oxygen Delivery Method Room Air Weight: 190 lb 11.198 oz Body Mass Index (BMI) 30.7 Intake & Output: Intake and Output for Last 24 Hours 12/26/21 12/27/21 12/28/21 23:59 23:59 23:59 Intake Total 1009.17 / 1009.17 200 / 200 Output Total 100 / 100 150 / 150 Balance 909.17 / 909.17 50 / 50 Lab / Micro Data Result Diagrams: 12/27/21 19:05 Labs: Laboratory Results - last 24 hr 12/27/21 19:05: WBC 11.0, RBC 4.08 L, Hgb 12.5, Hct 36.2 L, MCV 88.7, MCH 30.6, MCHC 34.5, RDW Std Deviation 42.0, RDW Coeff of [place] 12.9, Plt Count 235, MPV 11. 2, Immature Gran % (Auto) 0.600, Neut % (Auto) 73.6 H, Lymph % (Auto) 17.0 L, [place] % (Auto) 7.0, Eos % (Auto) 1.4, Baso % (Auto) 0.4, Absolute Neuts (auto) 8.1 H, Absolute Lymphs (auto) 1.87, Nucleated RBC % 0 12/27/21 19:05: Blood Type B POSITIVE, Antibody Screen NEGATIVE Micro: Microbiology 12/27/21 18:55 Nasal Secretion SARS-CoV-2 Antigen (Rapid) - Final Assessment & Plan (1) Vaginal after (): PLAN: Doing well PPD no 1 s/p routine spontaneous vaginal delivery. Will discharge home with routine instructions.
--- NOTE | 2021-12-28 18:10 | PCM.DC ---
Discharge Instructions Diet Discharge Diet: No restrictions Activity Discharge Activity: May Drive (In 1 to 2 days if not taking narcotic pain medication), May Shower and May Take a Tub Bath May resume sexual activity in: 4-6 weeks Additional Activity Instructions:: Nothing in the vagina for 4-6 weeks. You may return to work/school in 6 weeks. Dressing / Incision Call your doctor if you observe: Fever of 101 or Higher, Inability to urinate, Inability to have a bowel movement and Using more than 1 pad per hour Follow Up Care Please Follow Up With: Demi Hernández MD When: Call [phone] to make an appointment with your doctor in 6 weeks. Test Results: Test results from this visit will be discussed in further detail at your follow-up appointment, if applicable. Discharge Plan Admission Admit Date/Time: 12/27/21 18:50 Primary Reason for Your Visit: Vaginal Delivery Attending Provider: Jorge Loredo Instructions Patient Instructions: After a Vaginal Discharge Orders/Prescriptions Prescriptions: No Action PNV cmb#95-ferrous fumarate-FA 1 EACH tablet 1 ea PO DAILY Qty: 30 RF: 6 Disposition Disposition (needs filled in before D/C Order can be placed): Home, Self Care
== END 2021-12-28 20:05 | disposition home or self-care (01) | DRG 807 ==
LOC: WP 12-28 17:29 → WPOUT 12-29 15:14
PROVIDERS: Admitting Provider Obstetrics & Gynecology; Visit Provider Obstetrics & Gynecology
DX: O34.219 Maternal care for unspecified type scar from previous cesarean delivery (principal); Z37.0 Single live birth; O69.81X0 Labor and delivery complicated by cord around neck, without compression, not applicable or unspecified; Z3A.40 40 weeks gestation of pregnancy
CPT/HCPCS: 59025; 59050; 85025; 86850; 86900; 86901; 87811; 99218; J7120; A4216; G0378

== ENCOUNTER 2022-08-06 12:32 | Day surgery (SDC) | payer OTHER, SELFPAY ==
[2022-07-31 12:08] LABS: Hematocrit 37.2 % (37-47); Hemoglobin 12.6 g/dL (12.0-15.0); Mean Corp Hgb Conc 33.9 g/dL (32-36); Mean Corpuscular Hgb 29.9 pg (27.0-32.0); Mean Corpuscular Volume 88.4 fL (81-99); Mean Platelet Vol. 10.7 fl (6.2-12.0); Platelet Count 228 K/mm3 (150-450); RBC Distribution Width CV 12.9 % (11.6-14.6); RBC Distribution Width SD 41.8 fl (35.1-43.9); Red Blood Count 4.21 M/mm3 (4.2-5.4)
[2022-08-06 13:01] LABS: Internal QC Validated? YES +Cl - CLEAR BKGD; Pregnancy, Urine Negative Negative
[2022-08-06] MEDS: Lactated Ringers 1,000 ML 125 ML IV ×2 (13:10→15:00)
[2022-08-06 13:16] VITALS: BP 110/67; PULSE 57; RESP 16; TEMP 36.6; O2SAT 99; BMI 28.8
--- NOTE | 2022-08-06 13:41 | HP.PCM.OB_ITS ---
History and Physical Date of Admission: 08/06/22 HPI: 37-year-old female presenting for permanent sterilization. Denies headache or vision changes, chest pain or shortness of breath, nausea or vomiting, fevers or chills, diarrhea constipation. 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 ACL repair in 2003 2. [place] tooth extraction 2008 3. section 2015 No history of issues with anesthesia Medications: Vitamin Allergies: Sulfa causes hives Family history: Lung cancer. Noncontributory. Social history: Denies tobacco, alcohol, drug use Review of system: Negative otherwise stated above Physical exam: Blood pressure 110/67, heart rate 57, respiratory rate 16, temp 98 ?F, oxygen saturation 99% on room air General: No acute distress HEENT: Normal cephalic/atraumatic, PERRLA Cardiorespiratory: No increased effort Abdomen: Soft, nontender, nondistended Extremities: No edema Neurologic: Cranial nerves II through XII grossly intact, no focal deficits Musculoskeletal: Strength out of 5 throughout extremities Assessment/plan: 37-year-old female presenting for permanent sterilization. Pl an for laparoscopic bilateral salpingectomy. All risk, benefits, alternatives discussed with the patient. Risk include but not limited to: Risk of bleeding twin transfusion, infection, injury to surrounding tissue including bowel/bladder/major abdominal vessels, VTE, ICU admission. Patient were consented. Patient understands at this is a permanent procedure. If she were to become she is to contact provider immediately as she has a higher likelihood of ectopic .
--- NOTE | 2022-08-06 13:55 | FALS_PTH ---
PATIENT: MU SANTOS LOC: [facility] [place] U#:[id number] AGE/SX: 37/F ROOM: RE08/06/[address]: Dr. Jennifer Huber DO : 1985 BED: DIS: 08/06/2022 SPEC #: [id number] RECD: 08/06/22 16:41 STATUS: AB REArnav #: [id number] ALLA: 08/06/22 13:[address]: Jennifer Huber DEPT: SURGICAL PATHOLOGY RECD BY: Marjan Mobley ENTERED: 08/07/22 09:00 SP TYPE: FALL TUBES OTHR DR: Sweta Primary Care Phys Tissues: Fallopian tube Procedures: Surgery Specimen Level II HEADER OPERATION: Laparoscopic salpingectomy PRE-OP DIAGNOSIS: Sterilization TISSUE SUBMITTED: Bilateral fallopian tubes MICROSCOPIC DIAGNOSIS Right and left fallopian tubes, bilateral salpingectomies: Complete segments of fallopian tubes with benign paratubal cysts. AM:marti 08/11/2022 MICROSCOPIC DESCRIPTION Slides are reviewed. GROSS DESCRIPTION Received in fixative is one container labeled with the patient's name and designated bilateral fallopian tubes. The specimen consists of bilateral fallopian tubes including fimbrial ends. One fallopian tube measures 5 cm in length and 0.8 cm in diameter. The second fallopian tube received in two pieces measures 8.5 cm in length and 0.6 cm in diameter. The fallopian tubes are not identified as right or left. Sections reveal unremarkable cut surfaces. Clinical Practice Consultant sections are submitted in two cassettes as follows: 1 ? one fallopian tube, 2 ? second fallopian tube received in two pieces. / RAYNA:marti 08/07/2022 TC:5 CPT: 03429 x2
--- NOTE | 2022-08-06 14:22 | OP.PCM_ITS ---
Report of Operation Date of Procedure: 08/06/22 Pre-Operative Diagnosis: Desires permanent sterilization Post-Operative Diagnosis: Desires permanent sterilization Surgery/Procedure Performed:: Laparoscopic bilateral salpingectomy Description of Surgical Findings:: Normal-appearing external genitalia. Normal-appearing cervix. Minimal uterine descensus. Normal-appearing bilateral fallopian tubes and ovaries. Normal- appearing uterus. Type of Anesthesia: General Specimen's removed: Bilateral fallopian tubes Estimated Blood Loss (mL): 5 cc Fluids Replaced: 1000cc Description of Procedure: Indication/risk/benefits: 37-year-old female desires permanent sterilization plan for bilateral laparoscopic salpingectomy. All risk, benefits, alternatives discussed with patient. Risk include but are not limited to: Risk bleeding twin transfusion, infection, injury to surround tissue including bow el/bladder/uterine perforation/major abdominal vessels, VTE, ICU mission. Patient aware and consented. Procedure: Patient taken to the operating room placed under general anesthesia. Patient placed in dorsal lithotomy position prepped and draped in usual sterile fashion. Wagner catheter placed. Weighted speculum placed in posterior vagina and Cain retractor used to visualize cervix. Anterior lip of cervix grasped single-tooth tenaculum. Cervix sequentially dilated and Sargis manipulator placed. Gloves were changed and attention turned to the anterior abdominal wall. Infraumbilical incision made with scalpel and trocar placed under direct visualization. Abdomen insufflated. Right and left lower quadrant incisions made with scalpel and trochars placed under direct visualization. Left fallopian tube was identified and removed along the mesosalpinx using LigaSure device towards the cornua. Left fallopian tube removed through trocar. Right fallopian tube was identified and removed along the mesosalpinx using LigaSure device towards the cornua in a similar fashion. Right fallopian tube removed through trocar. Bilateral mesosalpinx were hemostatic. Abdomen desufflated and trochars were removed. Skin closed with subcuticular stitch and skin glue. Uterine manipulator removed and Wagner catheter removed. Cervix hemostatic. At the end of the procedure all needle, lap, sponge counts were correct. UOP: 75cc clear urine Complications None
--- NOTE | 2022-08-06 14:23 | DCINST_ITS ---
Discharge Instructions Diet Discharge Diet: No restrictions Activity Discharge Activity: Return to Normal Activity and May Shower May resume sexual activity in: 2 weeks Weight Bearing Status: Weight bearing as tolerated Lifting Restrictions: No greater than 20 pounds Dressing / Incision Call your doctor if your incision/area has: Continuous Slow Oozing, Increased Pain/ Swelling, Increased Redness and Foul Smelling Discharge Call your doctor if you observe: Fever of 101 or Higher, Inability to urinate, Using more than 1 pad per hour, Shortness of breath, Chest pain, Calf discomfort and Uncontrolled pain Cleanse incision/area with: Soap & Water and Keep Dressing Clean & Dry Follow Up Care Please Follow Up With: Jennifer Huber DO When: 2 weeks post operative visit. Test Results: Test results from this visit will be discussed in further detail at your follow- up appointment, if applicable. Discharge Plan Admission Primary Reason for Your Visit: Bilateral tubal ligation Attending Provider: Jennifer Huber Primary Care Provider: Care Physician,Sweta Primary Discharge Orders/Prescriptions Prescriptions: New oxycodone 5 mg tablet 5 mg PO Q6H PRN (Reason: pain (scale score 7-10)) 4 Days Qty: 15 0RF Continued multivitamin Tablet 1 tab PO DAILY Referrals / Follow Up: Care Physician,No Primary [Primary Care Provider] - Disposition Disposition (needs filled in before D/C Order can be placed): Home, Self Care
[2022-08-06 15:02] VITALS: BP 110/67; BP 120/68; PULSE 79; RESP 16; TEMP 36.3; O2SAT 99
[2022-08-06 15:15] VITALS: BP 108/75; BP 110/67; PULSE 62; RESP 14; O2SAT 97
[2022-08-06 15:30] VITALS: BP 110/67; BP 117/68; PULSE 57; RESP 16; O2SAT 99
[2022-08-06 15:49] VITALS: BP 110/62; BP 110/67; PULSE 50; RESP 16; TEMP 10.5; O2SAT 97
[2022-08-06 16:37] VITALS: BP 110/67; BP 127/56; PULSE 56; RESP 16; TEMP 36.3; O2SAT 100
== END 2022-08-06 16:41 | disposition home or self-care (01) ==
LOC: SDC 12:32 → AC 12:34
PROVIDERS: Anesthesiology; Referring Provider Student in an Organized Health Care Education/Training Program; Visit Provider Student in an Organized Health Care Education/Training Program
PROC: (CPT 58661; principal; 2022-08-06 13:40)
DX: Z30.2 Encounter for sterilization (principal); N83.8 Other noninflammatory disorders of ovary, fallopian tube and broad ligament; Z90.89 Acquired absence of other organs
CPT/HCPCS: 58661; 00840; 36415; 81025; 85027; 86850; 86900; 86901; 88302; J7120; J2405

== ENCOUNTER 2025-03-19 11:01 | Day surgery (SDC) | payer OTHER, SELFPAY ==
[2025-03-19] VITALS (11 sets, daily range): BP systolic 108–123; BP diastolic 59–88; PULSE 47–76; RESP 14–18; TEMP 36.2–36.5; O2SAT 97–100; BMI 25.6
--- OUTSIDE RECORDS SUMMARY | 2025-03-19 09:17 | XMS RPT_ITS | CCD ---
Author Organization [facility] Inform ion Partnership PROJECT MANAGER RETAIL [facility] Care Team Providers Care Insurance Adjustor Name Role Phone Unavailable Primary Care Provider Onel Matos Attending Unavailable Care Physician, No Primary Primary Care Unava ilable Allergies Allergy Classification Reported Allergen(s) Allergy Type Date of Onset Reaction(s) Facility (6 sources) Sulfonamides (Antibiotic); Translations: [SULFA (SULFONAMIDE ANTIBIOTICS)] Allergy to substance [facility] Repository Medications Current Medications Medication Drug Class(es) Dates Sig (Normalized) Sig (Original) amoxicillin 875 mg / clavulanate 125 mg oral tablet (1 source) Penicillin-class Antibacterial Start: 10-04-2022 End: 10-11-2022 take 1 tablet by mouth twice daily amoxicillin-clav ulanic acid (AUGMENTIN) 875-125 mg per tablet Indications: Bacterial sinusitis Take 1 tablet by mouth twice daily for 7 days. 14 tablet 0 10/04/2022 10/11/2022 Active Comment on above: Take 1 tablet by isha th twice daily for 7 days. ibuprofen 600 mg oral tablet (2 sources) Nonsteroidal Anti-inflammatory Drug Start: 12-29-2018 take 600 mg by mouth every six hours as needed Ibuprofen Active 600 MG PO EVERY 6 HOURS NEEDED December 29, 2018 2:07am Start: 05-18-2017 take 1 tablet by isha th three times daily as needed Ibuprofen (Motrin) 800 MG tablet Active 800 MG PO 3 TIMES DAILY NEEDED May 18, 2017 7:27am Multivitamin preparation (1 source) Start: 08-04-2022 take 1 tablet by mouth once daily Multivitamin Active 1 TABLET PO DAILY August 04, 2022 12:00am oxyCODONE hydrochloride 5 mg oral tablet (1 source) Opioid Agonist Start: 08-06-2022 take 5 mg by mouth every six hours Oxycodone Active 5 MG PO EVERY 6 HOURS 15 4 August 06, 2022 Pnv Cmb#95-Ferrous Fumarate-Fa (2 sources) Start: 12-29-2018 Pnv Cmb#95-Tereso kaz Fumarate-Fa Active 1 EACH PO DAILY December 29, 2018 2:08am Completed/Discontinued Medications Medication Drug Class(es) Dates Sig (Normalized) Sig (Original) 21 day ethinyl estradiol 0.049456 mg/hr / etonogestrel 0.005 mg/hr vaginal system (1 source) Progestin, Estrogen Start: 11-28-2020 ELURYNG 0.12-0.015 mg/24 hr vaginal ring APPLY VAGINALLY FOR 3 WEEKS. LEAVE OUT FOR 4 DAYS THEN REPEAT 0 11/28/2020 Active Comment on above: APPLY VAGINALLY FOR 3 WEEKS. LEAVE OUT FOR 4 DAYS THEN REPEAT multivit,thx,calcium ,iron,mins (MULTIVITAMIN AND MINERAL ORAL) (1 source) multivit,thx,arnie ci um,iron,mins (MULTIVITAMIN AND MINERAL ORAL) Take by mouth. 0 Active Comment on above: Take by mouth. Problems Problem Classification Problem Date Documented Da te Episodic/Chronic Early or threatened labor (3 sources) False labor; Translations: [False labor, unspecified] Episodic Other complications of ; puerperium affecting management of mother (3 sources) delivery - delivered; Translations: [Encounter for delivery without indication] Episodic Other nervous system disorders (1 source) Postoperative pain ; Translations: [Other acute postprocedural pain] Episodic Other upper respiratory infections (1 source) Bacterial sinusitis; Translations: [Chronic sinusitis, unspecified] Chronic Previous (3 sources) Vaginal delivery following previous section; Translations: [Maternal care for unspecified type scar from previous delivery] Episodic Residual codes; unclassified (3 sources) Gestation period, 38 weeks; Translations: [38 weeks gestation of ] Episodic Unclassified (3 sources) Normal labor; Translations: [Active labor at term] Results Test Name Value Interpretation Reference Range Facil ity ROSITAOVon 10-04-2022 CNOV Office Visit (UCWSTR) ELVA BLANKENSHIP ([id number]) 1985 F Date Time Provider Department 10/04/22 2:00 PM EMILY LUCAS During your visit today, we recorded the following information about you: Temperature Pulse Respiration Blood pressure 98.5 degrees 67/minute 18/minute 118/62 Weight Last Period 80.4 kg 10/01/22 Emily Lucas APRN.HISTORIC SITES REGISTRAR 10/04/2022 2:11 PM Signed Subjective HPI HPI Elva Blankenship is a 37 year old female who presents today for CC of sinus pressure. This started 2 weeks ago. Has tried otc medication for relief. Symptoms are worsened by nothing. Risk factors hx of sinus infections. Denies possibility of being . nonsmoker. .Patient presents with: Nasal Congestion: Pt reported Rojas, x2 wks. PAST MEDICAL HISTORY Diagnosis Date NEGATIVE MEDICAL HISTORY PAST SURGICAL HISTORY Procedure Laterality Date ARTHROSCOPY KNEE DIAGNOSTIC W/WO SYNOVIAL BX SPX Arthroscopy, knee MYRINGOTOMY ASPIRAND/EUSTACHIAN TUBE NFLTJ ANES Myringotomy/tubes TONSILLECTOMY PRIMARY/SECONDARY Tonsillectomy ALLERGIES Sulfa (Sulfonamide Antibiotics) MEDICATIONS multivit,thx,calcium ,iron,mins (MULTIVITAMIN AND MINERAL ORAL) Take by mouth. ELURYNG 0.12-0.015 mg/24 hr vaginal ring APPLY VAGINALLY FOR 3 WEEKS. LEAVE OUT FOR 4 DAYS THEN REPEAT (Patient not taking: Reported on 07/27/2021) FAMILY HISTORY Problem Relation Age of Onset Cancer Paternal Aunt Emphysema Paternal Grandfather Social History Tobacco Use Smoking status: Never Smokeless tobacco: Never Substance Use Topics Alcohol use: No Drug use: No ROS Objective Blood pressure 118/62, pulse 67, temperature 36.9 ?C (98.5 ?F), temperature source Temporal, resp. rate 18, weight 80.4 kg (177 lb 3.2 oz), last menstrual period 10/01/2022, SpO2 98 %. Physical Exam Constitutional: General: She is not in acute distress. Appearance: She is not toxic-appearing or diaphoretic. HENT: Head: Normocephalic and atraumatic. Nose: Right Sinus: Frontal sinus tenderness present. Left Sinus: Frontal sinus tenderness present. Cardiovascular: Rate and Rhythm: Normal rate and regular rhythm. Heart sounds: Normal heart sounds, S1 normal and S2 normal. Pulmonary: Effort: Pulmonary effort is normal. Breath sounds: Normal breath sounds. Lymphadenopathy: Cervical: No cervical adenopathy. Right cervical: No superficial cervical adenopathy. Left cervical: No superficial cervical adenopathy. Neurological: Mental Status: She is alert and oriented to person, place, and time. Gait: Gait is intact. ASSESSMENT/PLAN: 1. Bacterial sinusitis - ICD9: 473.9, 041.9, ICD10: J32.9, B96.89 - Will begin treatment with as per antibiotic as written, see orders - Supportive care with plenty of fluids, rest, and analgesia prn. - Follow up in 3-5 days if symptoms persist or worsen. - AMOXICILLIN 875 MG-POTASSIUM CLAVULANATE 125 MG TABLET Emily Lucas APRN.HISTORIC SITES REGISTRAR Allergies As of Date: 10/04/2022 Noted Allergy Reaction SULFA (SULFONAMIDE ANTIBIOTICS) 12/10/2005 Date Reviewed: 10/04/2022 Reviewed by: Emily Lucas APRN.HISTORIC SITES REGISTRAR - Fully Assessed Reason for Visit: Nasal Congestion [235] Cmt: Pt reported Rojas, x2 wks. Primary Visit Diagnosis:Bacterial sinusitis [J32.9, B96.89] Order(s):amoxicillin -clavulanic acid (AUGMENTIN) 875-125 mg per tabletTake 1 tablet by mouth twice daily for 7 days.Disp: 14 tabletRfl: 0 Prescriptions as of 10/04/2022 - multivit,thx,calcium ,iron,mins (MULTIVITAMIN AND MINERAL ORAL) Take by mouth. - amoxicillin-clavulan ic acid (AUGMENTIN) 875-125 mg per tablet Take 1 tablet by mouth twice daily for 7 days. - ELURYNG 0.12-0.015 mg/24 hr vaginal ring APPLY VAGINALLY FOR 3 WEEKS. LEAVE OUT FOR 4 DAYS THEN REPEAT Meds Comments as of 03/07/2007: No current medications as of todays visit /03/07/2007 Eleni Mulligan [facility] Problem List As Of Date 10/04/2022 Noted Resolved Routine infant or child health check [Z00.129] 03/07/2007 09/18/2011 Prescriptions ordered this encounter Disp Refills Start End AMOXICILLIN 875 MG-POTASSIUM CLAVULA* 14 t* 0 10/04/2022 10/11/2022 Route: ORAL Sig: Take 1 tablet by mouth twice daily for 7 days. Encounter Status:Closed by EMILY LUCAS on 10/04/22 Normal [facility] Laboratory - Chemistry and C hemistry - challengeon 08-06-2022 HCG ( test) Ql (U) Negative [facility] Work Phone: Comment on above: Very dilute urine sp ecimens, as indicated by a low specificgravity, may not contain computer help desk representative levels of hCG. If is still suspected, a first morning urinespecimen should be collected 48 hours later and tested. Basophil percentageon 2021 WBC (Bld) [#/Vol] 5.0 10*3/uL 4.4-11.0 [facility] Work Phone: Blood erythrocytes count (nu mber/volume)on 07-31-2022 RBC (Bld) [#/Vol] 4.21 10*6/uL 4.2-5.4 [facility] Work Phone: Blood hemoglobin measurement (mass/volume)on 07-31-2022 Hemoglobin (Bld) [Mass/Vol] 12.6 g/dL 12.0-15.0 [facility] Work Phone: Blood platelet mean volumeon 07-31-2022 Platelet mean volume (Bld) [Entitic vol] 10.7 fL 6.2-12.0 [facility] Work Phone: Determination of erythrocyte mean corpuscular volume (MCV)on 07-31-2022 MCV (RBC) [Entitic vol] 88.4 fL 81-99 [facility] Work Phone: Hematocrit Auto (Bld) [Volum e fraction]on 07-31-2022 Hematocrit (Bld) [Volume fraction] 37.2 % 37-47 [facility] Work Phone: Laboratory - Hematology and Cell countson 07-31-2022 Erythrocyte distribution width (RBC) [Entitic vol] 41.8 fL 35.1-43.9 [facility] Work Phone: Erythrocyte distribution width (RBC) [Ratio] 12.9 % 11.6-14.6 [facility] Work Phone: MCH (RBC) [Entitic mass] 29.9 pg 27.0-32.0 [facility] Work Phone: MCHC Auto (RBC) [Mass/Vol]on 07-31-2022 MCHC (RBC) [Mass/Vol] 33.9 g/dL 32-36 [facility] Work Phone: Platelets bldon 07-31-2022 Platelets (Bld) [#/Vol] 228 10*3/uL 150-450 [facility] Work Phone: Absolute lymphocyte counton 12-27-2021 Lymphocytes Auto (Unsp spec) [#/Vol] 1.87 10*3/uL 0.83-4.51 [facility] Work Phone: Basophil percentageon 2021 Basophils/100 WBC (Bld) 0.4 % 0-1 [facility] Work Phone: Eosinophils/100 WBC (Bld) 1.4 % 0-5 [facility] Work Phone: Neutrophils (Bld) [#/Vol] 8.1 10*3/uL 2.0-7.7 [facility] Work Phone: Neutrophils/100 WBC (Bld) 73.6 % 47-70 [facility] Work Phone: WBC (Bld) [#/Vol] 11.0 10*3/uL 4.4-11.0 [facility] Work Phone: Blood erythrocytes count (nu mber/volume)on 12-27-2021 RBC (Bld) [#/Vol] 4.08 10*6/uL 4.2-5.4 [facility] Work Phone: Blood hemoglobin measurement (mass/volume)on 12-27-2021 Hemoglobin (Bld) [Mass/Vol] 12.5 g/dL 12.0-15.0 [facility] Work Phone: Blood lymphocytes/100 leukoc yteson 12-27-2021 Lymphocytes/100 WBC (Bld) 17.0 % 19-41 [facility] Work Phone: Blood monocytes/100 leukocyt eson 12-27-2021 Monocytes/100 WBC (Bld) 7.0 % 0-10 [facility] Work Phone: Blood platelet mean volumeon 12-27-2021 Platelet mean volume (Bld) [Entitic vol] 11.2 fL 6.2-12.0 [facility] Work Phone: Determination of erythrocyte mean corpuscular volume (MCV)on 12-27-2021 MCV (RBC) [Entitic vol] 88.7 fL 81-99 [facility] Work Phone: Hematocrit Auto (Bld) [Volum e fraction]on 12-27-2021 Hematocrit (Bld) [Volume fraction] 36.2 % 37-47 [facility] Work Phone: Laboratory - Hematology and Cell countson 12-27-2021 Erythrocyte distribution width (RBC) [Entitic vol] 42.0 fL 35.1-43.9 [facility] Work Phone: Erythrocyte distribution width (RBC) [Ratio] 12.9 % 11.6-14.6 [facility] Work Phone: Immature granulocytes/100 WBC (Bld) 0.600 % 0.0-0.9 [facility] Work Phone: Comment on above: IG% - Immature Granu locytes (promyelocytes, myelocytes and metamyelocytes) > 1% indicates that a LEFT SHIFT is Present. MCH (RBC) [Entitic mass] 30.6 pg 27.0-32.0 [facility] Work Phone: Nucleated RBC/100 WBC (Bld) [Ratio] 0 % 0-5 [facility] Work Phone: MCHC Auto (RBC) [Mass/Vol]on 12-27-2021 MCHC (RBC) [Mass/Vol] 34.5 g/dL 32-36 [facility] Work Phone: Platelets bldon 12-27-2021 Platelets (Bld) [#/Vol] 235 10*3/uL 150-450 [facility] Work Phone: No Panel Informationon 11-26 Group B Streptococcus Culture Group B Beta Streptococcus is not isolated. [facility] Work Phone: Basophil percentageon 2021 WBC (Bld) [#/Vol] 8.3 10*3/uL 4.4-11.0 [facility] Work Phone: Blood erythrocytes count (nu mber/volume)on 10-01-2021 RBC (Bld) [#/Vol] 3.63 10*6/uL 4.2-5.4 [facility] Work Phone: Blood hemoglobin measurement (mass/volume)on 10-01-2021 Hemoglobin (Bld) [Mass/Vol] 11.4 g/dL 12.0-15.0 [facility] Work Phone: Blood platelet mean volumeon 10-01-2021 Platelet mean volume (Bld) [Entitic vol] 10.5 fL 6.2-12.0 [facility] Work Phone: Determination of erythrocyte mean corpuscular volume (MCV)on 10-01-2021 MCV (RBC) [Entitic vol] 90.1 fL 81-99 [facility] Work Phone: Gestational diabetes screen 1-hour screen with 50g oral glucose loadon 10-01-2021 Glucose 1 Hr post 50 g glucose PO [Mass/Vol] 103 mg/dL 70-140 [facility] Work Phone: Hematocrit Auto (Bld) [Volum e fraction]on 10-01-2021 Hematocrit (Bld) [Volume fraction] 32.7 % 37-47 [facility] Work Phone: Laboratory - Hematology and Cell countson 10-01-2021 Erythrocyte distribution width (RBC) [Entitic vol] 44.1 fL 35.1-43.9 [facility] Work Phone: Erythrocyte distribution width (RBC) [Ratio] 13.4 % 11.6-14.6 [facility] Work Phone: MCH (RBC) [Entitic mass] 31.4 pg 27.0-32.0 [facility] Work Phone: MCHC Auto (RBC) [Mass/Vol]on 10-01-2021 MCHC (RBC) [Mass/Vol] 34.9 g/dL 32-36 [facility] Work Phone: Platelets bldon 10-01-2021 Platelets (Bld) [#/Vol] 221 10*3/uL 150-450 [facility] Work Phone: Serum or plasma ferritin deniz surement (mass/volume)on 10-01-2021 Ferritin [Mass/Vol] 6 ng/mL 8-252 [facility] Work Phone: Vital Signs Date Time Vital Sign Value Performing Clinician Facility 10-04-2022 14:00-0500 Body temperature 98.49 [degF] Emily Lucas APRN.HISTORIC SITES REGISTRAR Work Phone: [facility] 10-04-2022 14:00-0500 Body weight 80.38 kg Emily Lucas APRN.CNP Work Phone: [facility] 10-04-2022 14:00-0500 Diastolic blood pressure 62 mm[Hg] Emily Lucas APRN.HISTORIC SITES REGISTRAR Work Phone: [facility] 10-04-2022 14:00-0500 Heart rate 67 /min Emily Lucas APRN.HISTORIC SITES REGISTRAR Work Phone: [facility] 10-04-2022 14:00-0500 Respiratory rate 18 /min Emily Lucas APRN.HISTORIC SITES REGISTRAR Work Phone: [facility] 10-04-2022 14:00-0500 SaO2% (BldA) [Mass fraction] 98 % Emily Lucas APRN.HISTORIC SITES REGISTRAR Work Phone: [facility] 10-04-2022 14:00-0500 Systolic blood pressure 118 mm[Hg] Emily Lucas APRN.HISTORIC SITES REGISTRAR Work Phone: [facility] 08-06-2022 16:37-0500 Body temperature 97.3 [degF] [facility] Work Phone: 08-06-2022 16:37-0500 Diastolic blood pressure 56 mm[Hg] [facility] Work Phone: 08-06-2022 16:37-0500 Heart rate 56 /min [facility] Work Phone: 08-06-2022 16:37-0500 Respiratory rate 16 /min [facility] Work Phone: 08-06-2022 16:37-0500 SaO2% (BldA) [Mass fraction] 100 % [facility] Work Phone: 08-06-2022 16:37-0500 Systolic blood pressure 127 mm[Hg] [facility] Work Phone: 08-06-2022 13:16-0500 Body height 167.64 cm [facility] Work Phone: 08-06-2022 13:16-0500 Body mass index (BMI) [Ratio] 28.8 kg/m2 [facility] Work Phone: 08-06-2022 13:16-0500 Body weight 81 kg [facility] Work Phone: 12-28-2021 17:48-0400 Diastolic blood pressure 61 mm[Hg] [facility] Work Phone: 12-28-2021 17:48-0400 Heart rate 56 /min [facility] Work Phone: 12-28-2021 17:48-0400 Systolic blood pressure 118 mm[Hg] [facility] Work Phone: 12-28-2021 17:47-0400 Body temperature 97.8 [degF] [facility] Work Phone: 12-28-2021 17:47-0400 Respiratory rate 16 /min [facility] Work Phone: 12-28-2021 17:47-0400 SaO2% (BldA) [Mass fraction] 98 % [facility] Work Phone: 12-27-2021 17:07-0400 Body height 167.64 cm [facility] Work Phone: 12-27-2021 17:07-0400 Body mass index (BMI) [Ratio] 30.7 kg/m2 [facility] Work Phone: 12-27-2021 17:07-0400 Body weight 86.5 kg [facility] Work Phone: 12-14-2021 23:57-0400 Body temperature 98.9 [degF] [facility] Work Phone: 12-14-2021 22:26-0400 Body mass index (BMI) [Ratio] 31 kg/m2 [facility] Work Phone: 12-14-2021 22:26-0400 Body weight 87.25 kg [facility] Work Phone: 12-14-2021 21:57-0400 Diastolic blood pressure 60 mm[Hg] [facility] Work Phone: 12-14-2021 21:57-0400 Heart rate 90 /min [facility] Work Phone: 12-14-2021 21:57-0400 Systolic blood pressure 129 mm[Hg] [facility] Work Phone: Encounters Encounter Date Encounter Type Care Provider Facility Start: 03-19-2025 ambulatory Onel Pierre ty:[facility] Start: 10-04-2022 End: 10-04-2022 ambulatory Facility:[facility] Start: 10-04-2022 End: 10-04-2022 Patient encounter procedure Emily Lucas APRNKrunalHISTORIC SITES REGISTRAR Work Phone: [facility] Comment on above: Bacterial sinusitis (Primary Dx) Start: 08-06-2022 End: 08-06-2022 Admission to same day surgery center [facility] Start: 08-06-2022 End: 08-06-2022 ambulatory [facility] Work Phone: Start: 12-27-2021 End: 12-28-2021 Evaluation and management of inpatient [facility] Start: 12-14-2021 End: 12-15-2021 Patient encounter procedure [facility] Outpatients Start: 11-26-2021 End: 11-26-2021 Patient encounter procedure [facility] Specimen Start: 10-01-2021 End: 10-01-2021 Patient encounter procedure [facility] Procedures Date Procedure Procedure Detail Performing Clinician Start: 08-06-2022 Laparoscopic salpingectomy Start: 12-27-2021 End: 12-27-2021 Viral antigen assay Start: 11-26-2021 Group B Streptococcu s Culture H/O: section Previous c esarean section Plan of Treatment Date Care Activity Detail Author Start: 06-11-2026 PAP TESTING PAP TESTING [facility] Start: 08-09-2022 DEPRESSION ASSESSMENT DEPRESSION ASS ESSMENT [facility] Start: 08-06-2022 Ambulation without limitation [facility] Work Phone: Start: 08-06-2022 Medication education [facility] Work Phone: Start: 08-06-2022 Patient discharge [facility] Work Phone: Start: 08-06-2022 Planned voiding [facility] Work Phone: Start: 08-06-2022 Taking patient vital signs [facility] Work Phone: Start: 08-06-2022 Vital signs measurements [facility] Work Phone: Start: 08-06-2022 [facility] Work Phone: Start: 04-09-2022 Influenza vaccination INFLUENZA (#1) [facility] Start: 2017 HPV TESTING HPV TESTING [facility] Start: 10-20-2015 Urine microalbumin profile DTAP,TDAP,TD (6 - Tdap) [facility] Start: 2005 HEPATITIS C SCREENING HEPATITIS C SC REENING [facility] Start: 2005 HIV SCREENING HIV SCREENING [facility] Start: 1987 COVID-19 VACCINE (#1) COVID-19 VACCI NE (#1) [facility] Patient Education [facility] Work Phone: Patient referral [facility] Work Phone: Immunizations Immunization Date Immunization Notes Care Provider Erlinda jon 03-07-2007 Meningococcal, MCV4, unspecified conjugate formulation(groups A, C, Y and W-135) Emily Lucas GOVERNMENT SERVICE EXECUTIVE.HISTORIC SITES REGISTRAR Work Phone: [facility] 10-19-2005 diphtheria, tetanus toxoids and acellular pertussis vaccine Emily Lucas GOVERNMENT SERVICE EXECUTIVE.HISTORIC SITES REGISTRAR Work Phone: [facility] 03-06-2002 hepatitis B vaccine, pediatric or pediatric/adolescent dosage Emily Lance GOVERNMENT SERVICE EXECUTIVE.HISTORIC SITES REGISTRAR Work Phone: [facility] 02-04-2001 hepatitis B vaccine, pediatric or pediatric/adolescent dosage Emily Lance GOVERNMENT SERVICE EXECUTIVE.HISTORIC SITES REGISTRAR Work Phone: [facility] 02-23-2000 hepatitis B vaccine, pediatric or pediatric/adolescent dosage Emily Lance GOVERNMENT SERVICE EXECUTIVE.HISTORIC SITES REGISTRAR Work Phone: [facility] 02-23-2000 measles, mumps and rubella virus vaccine Emily Lance GOVERNMENT SERVICE EXECUTIVE.HISTORIC SITES REGISTRAR Work Phone: [facility] 03-18-1993 diphtheria, tetanus toxoids and acellular pertussis vaccine Emily Lucas GOVERNMENT SERVICE EXECUTIVE.HISTORIC SITES REGISTRAR Work Phone: [facility] 03-18-1993 trivalent poliovirus vaccine, live, oral Emily Lucas GOVERNMENT SERVICE EXECUTIVE.HISTORIC SITES REGISTRAR Work Phone: [facility] 10-07-1988 haemophilus influenz ae type b vaccine, PRP-D conjugate [facility] GOVERNMENT SERVICE EXECUTIVE.HISTORIC SITES REGISTRAR Work Phone: [facility] 07-21-1988 diphtheria, tetanus toxoids and acellular pertussis vaccine Emily Lance GOVERNMENT SERVICE EXECUTIVE.HISTORIC SITES REGISTRAR Work Phone: [facility] 07-21-1988 measles, mumps and rubella virus vaccine [facility] GOVERNMENT SERVICE EXECUTIVE.HISTORIC SITES REGISTRAR Work Phone: [facility] 07-21-1988 trivalent poliovirus vaccine, live, oral Emily Lucas GOVERNMENT SERVICE EXECUTIVE.HISTORIC SITES REGISTRAR Work Phone: [facility] 1985 DTP-Haemophilus influenzae type b conjugate vaccine [facility] GOVERNMENT SERVICE EXECUTIVE.HISTORIC SITES REGISTRAR Work Phone: [facility] 1985 trivalent poliovirus vaccine, live, oral Emily Lucas GOVERNMENT SERVICE EXECUTIVE.HISTORIC SITES REGISTRAR Work Phone: [facility] 1985 DTP-Haemophilus influenzae type b conjugate vaccine Emily Lance GOVERNMENT SERVICE EXECUTIVE.HISTORIC SITES REGISTRAR Work Phone: [facility] 1985 trivalent poliovirus vaccine, live, oral Emily King GOVERNMENT SERVICE EXECUTIVE.HISTORIC SITES REGISTRAR Work Phone: [facility] Payers Date Payer Category Payer Self-pay [id number] 2022 Unknown [id number] 2022 Unknown MMO [employer] [id number] 2022-Present [phone] [address] [place] [address] Indemnity [id number] Unknown [id number] Unknown [id number] Social History Date Type Detail Facility Start: 12-30-2018 End: 08-04-2022 Tobacco smoking status NHIS Unknown if ever smoked [facility] Work Phone: Start: 02-27-2016 None [facility] Work Phone: Start: 1985 Sex Assigned At Female W [facility] Work Phone: Start: 10-04-2022 [facility] Start: 10-04-2022 Tobacco use and exposure Smokeless tobacco non-user [facility] Start: 10-04-2022 Alcohol intake Current non-dr bias binding cutter of alcohol (finding) [facility] Start: 1985 Sex Assigned At Not on file [facility] Goals Date Patient Goal Desired Activity /State Functional Status Date Assessment Result Facility 08-06-2022 Functional status Ambulates;Bathroom Priv ilege [facility] Work Phone: Mental Status Date Assessment Result Facility 08-06-2022 Cognitive function Voice/Name [facility] Work Phone: Progress note 10-04-2022 Note Date & Type Note Facility 10-04-2022 Note HNO ID: [id number] Author: Emily Lucas APRN.HISTORIC SITES REGISTRAR Service: ? Author Type: Nurse Practitioner Type: Progress Notes Filed: 10/04/2022 2:11 PM Note Text: Subjective HPI HPI Elva Blankenship is a 37 year old female who presents today for CC of sinus pressure. This started 2 weeks ago. Has tried otc medication for relief. Symptoms are worsened by nothing. Risk factors hx of sinus infections. Denies possibility of being . nonsmoker. .Patient presents with: Nasal Congestion: Pt reported Rojas, x2 wks. PAST MEDICAL HISTORY Diagnosis Date NEGATIVE MEDICAL HISTORY PAST SURGICAL HISTORY Procedure Laterality Date ARTHROSCOPY KNEE DIAGNOSTIC W/WO SYNOVIAL BX SPX Arthroscopy, knee MYRINGOTOMY ASPIRAND/EUSTACHIAN TUBE NFLTJ ANES Myringotomy/tubes TONSILLECTOMY PRIMARY/SECONDARY Tonsillectomy ALLERGIES Sulfa (Sulfonamide Antibiotics) MEDICATIONS multivit,thx,calcium,iron,mins (MULTIVITAMIN AND MINERAL ORAL) Take by mouth. ELURYNG 0.12-0.015 mg/24 hr vaginal ring APPLY VAGINALLY FOR 3 WEEKS. LEAVE OUT FOR 4 DAYS THEN REPEAT (Patient not taking: Reported on 07/27/2021) FAMILY HISTORY Problem Relation Age of Onset Cancer Paternal Aunt Emphysema Paternal Grandfather Social History Tobacco Use Smoking status: Never Smokeless tobacco: Never Substance Use Topics Alcohol use: No Drug use: No ROS Objective Blood pressure 118/62, pulse 67, temperature 36.9 ?C (98.5 ?F), temperature source Temporal, resp. rate 18, weight 80.4 kg (177 lb 3.2 oz), last menstrual period 10/01/2022, SpO2 98 %. Physical Exam Constitutional: General: She is not in acute distress. Appearance: She is not toxic-appearing or diaphoretic. HENT: Head: Normocephalic and atraumatic. Nose: Right Sinus: Frontal sinus tenderness present. Left Sinus: Frontal sinus tenderness present. Cardiovascular: Rate and Rhythm: Normal rate and regular rhythm. Heart sounds: Normal heart sounds, S1 normal and S2 normal. Pulmonary: Effort: Pulmonary effort is normal. Breath sounds: Normal breath sounds. Lymphadenopathy: Cervical: No cervical adenopathy. Right cervical: No superficial cervical adenopathy. Left cervical: No superficial cervical adenopathy. Neurological: Mental Status: She is alert and oriented to person, place, and time. Gait: Gait is intact. ASSESSMENT/PLAN: 1. Bacterial sinusitis - ICD9: 473.9, 041.9, ICD10: J32.9, B96.89 - Will begin treatment with as per antibiotic as written, see orders - Supportive care with plenty of fluids, rest, and analgesia prn. - Follow up in 3-5 days if symptoms persist or worsen. - AMOXICILLIN 875 MG-POTASSIUM CLAVULANATE 125 MG TABLET Emily Lucas APRN.ZONIA [facility] History of Present illness Narrative 10-04-2022 Emily Lucas APRN.ZONIA - 10/04/2022 2:03 PM EST Note Date & Type Note Facility 10-04-2022 History of Presen t illness Narrative Subjective HPI HPI Elva Blankenship is a 37 year old female who presents today for CC of sinus pressure. This started 2 weeks ago. Has tried otc medication for relief. Symptoms are worsened by nothing. Risk factors hx of sinus infections. Denies possibility of being . nonsmoker. .Patient presents with: Nasal Congestion: Pt reported Rojas, x2 wks. PAST MEDICAL HISTORY Diagnosis Date NEGATIVE MEDICAL HISTORY PAST SURGICAL HISTORY Procedure Laterality Date ARTHROSCOPY KNEE DIAGNOSTIC W/WO SYNOVIAL BX SPX Arthroscopy, knee MYRINGOTOMY ASPIR&/EUSTACHIAN TUBE NFLTJ ANES Myringotomy/tubes TONSILLECTOMY PRIMARY/SECONDARY <AGE 12 Tonsillectomy ALLERGIES Sulfa (Sulfonamide Antibiotics) MEDICATIONS multivit,thx,calcium,iron,mins (MULTIVITAMIN AND MINERAL ORAL) Take by mouth. ELURYNG 0.12-0.015 mg/24 hr vaginal ring APPLY VAGINALLY FOR 3 WEEKS. LEAVE OUT FOR 4 DAYS THEN REPEAT (Patient not taking: Reported on 07/27/2021) FAMILY HISTORY Problem Relation Age of Onset Cancer Paternal Aunt Emphysema Paternal Grandfather Social History Tobacco Use Smoking status: Never Smokeless tobacco: Never Substance Use Topics Alcohol use: No Drug use: No ROS Objective Blood pressure 118/62, pulse 67, temperature 36.9 C (98.5 F), temperature source Temporal, resp. rate 18, weight 80.4 kg (177 lb 3.2 oz), last menstrual period 10/01/2022, SpO2 98 %. Physical Exam Constitutional: General: She is not in acute distress. Appearance: She is not toxic-appearing or diaphoretic. HENT: Head: Normocephalic and atraumatic. Nose: Right Sinus: Frontal sinus tenderness present. Left Sinus: Frontal sinus tenderness present. Cardiovascular: Rate and Rhythm: Normal rate and regular rhythm. Heart sounds: Normal heart sounds, S1 normal and S2 normal. Pulmonary: Effort: Pulmonary effort is normal. Breath sounds: Normal breath sounds. Lymphadenopathy: Cervical: No cervical adenopathy. Right cervical: No superficial cervical adenopathy. Left cervical: No superficial cervical adenopathy. Neurological: Mental Status: She is alert and oriented to person, place, and time. Gait: Gait is intact. ASSESSMENT/PLAN: 1. Bacterial sinusitis - ICD9: 473.9, 041.9, ICD10: J32.9, B96.89 - Will begin treatment with as per antibiotic as written, see orders - Supportive care with plenty of fluids, rest, and analgesia prn. - Follow up in 3-5 days if symptoms persist or worsen. - AMOXICILLIN 875 MG-POTASSIUM CLAVULANATE 125 MG TABLET Emily Lucas APRN.ZONIA documented in this encounter [facility] History of Past illness Narrative 03-07-2007 Note Date & Type Note Facility 03-07-2007 History of Past i llness Narrative Problem Noted Date Resolved Date Routine infant or child health check 03/07/2007 09/18/2011 documented as of this encounter (statuses as of 10/04/2022) [facility] Evaluation note Note Date & Type Note Facility Evaluation note No assessment information availa ble [facility] Work Phone: Evaluation note Note Date & Type Note Facility Evaluation note Diagnosis Onset Date False labor, antepartum acut e Vaginal after () acute [facility] Work Phone: Evaluation note Note Date & Type Note Facility Evaluation note Diagnosis Bacterial sinusitis- Primary Unspecified sinusitis (chronic) documented in this encounter [facility] Advance Directives No Advanced Directives Records Found Advance Directive Response Recorded Date/ Time Living Will No December 29, 2018 3 :50am Power of Bowl Topper No December 29, 2018 3:50am Advance Directive Response Recorded Date/ Time Living Will Yes December 27, 2021 5 :49pm Power of Bowl Topper Yes December 27, 2021 5:49pm Advance Directive Response Recorded Date/ Time Living Will Yes August 04, 2 022 2:15pm Power of Bowl Topper Yes August 04, 2022 2:15pm [facility] August 04, 2022 2:15pm Chief Complaint and Reason for Visit Chief Complaint RULE OUT LABOR LABOR AND DELIVERY Reason for Visit False labor, antepar laila Vaginal after () Chief Complaint LAP SALPINGECTOMY Family History No Family History Records Found Relationship Condition Age at Onset Recorded Date/T nilam aunt Malignant neoplasm Unknown grandfather Pulmonary emphysema Unknown Summary Purpose Additional Source Comments Goals (unrecognized section and content) Goals may be documented in a n alternate sectionGoals may be documented in an alternate section INFORMATION SOURCE (unrecogn ized section and content) DATE CREATED AUTHOR 10/04/2022 [facility] DATE CREATED AUTHOR AUTHOR'S ORGANIZ ATION 03/17/2025 [facility] Source Comments (unrecognize d section and content) In the event this informatio n is protected by the Federal Confidentiality of Alcohol and Drug Abuse Patient Records regulations: The Federal rules restrict any use of the information to criminally investigate or prosecute any alcohol or drug abuse patient.[facility] Reason for Visit (unrecogniz ed section and content) Reason Comments Nasal Congestion Pt reported Rojas, x2 w ks. FOR RECORDS PERTAINING TO PATIENTS WHO ARE OR HAVE BEEN ENROLLED IN A CHEMICAL DEPENDENCY/SUBSTANCEABUSE PROGRAM, SOME INFORMATION MAY BE OMITTED. This clinical summary was aggregated from multiple sources. Caution should be exercised in using it in the provision of clinical care. This summary normalizes information from multiple sources, and as a consequence, information in this document may materially change the coding, format and clinical context of patient data. In addition, data may be omitted in some cases. CLINICAL DECISIONS SHOULD BE BASED ON THE PRIMARY CLINICAL RECORDS. [employer] provides no warranty or guarantee of the accuracy or completeness of information in this document.
--- OUTSIDE RECORDS SUMMARY | 2025-03-19 09:17 | XMS RPT_ITS | CCD ---
Author Organization [facility] Inform ion Partnership [employer] [facility] Care Team Providers Care Lockstitch Coat Joiner Name Role Phone Unavailable Primary Care Provider Onel Matos Attending Unavailable Care Physician, No Primary Primary Care Unava ilable Allergies Allergy Classification Reported Allergen(s) Allergy Type Date of Onset Reaction(s) Facility (6 sources) Sulfonamides (Antibiotic); Translations: [SULFA (SULFONAMIDE ANTIBIOTICS)] Allergy to substance [facility] Repository Medications Current Medications Medication Drug Class(es) [...] (Normalized) Sig (Original) 21 day ethinyl estradiol 0.617565 mg/hr / etonogestrel 0.005 mg/hr vaginal system [...] 10-04-2022 CNOV Office Visit (UCWSTR) ELVA BLANKENSHIP ([id number]) 1985 F Date Time Provider Department 10/04/22 2:00 PM EMILY LUCAS During your visit today, we recorded the following information about you: Temperature Pulse Respiration Blood pressure 98.5 degrees 67/minute 18/minute 118/62 Weight Last Period 80.4 kg 10/01/22 Emily Lucas APRN.WATER CONTROL SUPERVISOR 10/04/2022 2:11 PM Signed Subjective HPI HPI [...] MG-POTASSIUM CLAVULANATE 125 MG TABLET Emily Lucas APRN.WATER CONTROL SUPERVISOR Allergies As of Date: 10/04/2022 Noted Allergy Reaction SULFA (SULFONAMIDE ANTIBIOTICS) 12/10/2005 Date Reviewed: 10/04/2022 Reviewed by: Emily Lucas APRN.WATER CONTROL SUPERVISOR - Fully Assessed Reason for Visit: Nasal [...] as of todays visit /03/07/2007 Eleni Mulligan [facility] Problem List As Of Date 10/04/2022 Noted Resolved Routine infant or child health check [Z00.129] 03/07/2007 09/18/2011 Prescriptions ordered this encounter Disp Refills Start End AMOXICILLIN 875 MG-POTASSIUM CLAVULA* 14 t* 0 10/04/2022 10/11/2022 Route: ORAL Sig: Take 1 tablet by mouth twice daily for 7 days. Encounter Status:Closed by EMILY LUCAS on 10/04/22 Normal [facility] - Chemistry and C hemistry - challengeon 08-06-2022 HCG ( test) Ql (U) Negative [facility] Work Phone: Comment on above: Very dilute urine sp ecimens, as indicated by a low specificgravity, may not contain event representative levels of hCG. If is still suspected, a first morning urinespecimen should be collected 48 hours later and tested. Basophil percentageon 2021 WBC (Bld) [#/Vol] 5.0 10*3/uL 4.4-11.0 [facility] Work Phone: Blood erythrocytes count (nu mber/volume)on 07-31-2022 RBC (Bld) [#/Vol] 4.21 10*6/uL 4.2-5.4 [facility] Work Phone: Blood hemoglobin measurement (mass/volume)on 07-31-2022 Hemoglobin (Bld) [Mass/Vol] 12.6 g/dL 12.0-15.0 [facility] Work Phone: Blood platelet mean volumeon 07-31-2022 Platelet mean volume (Bld) [Entitic vol] 10.7 fL 6.2-12.0 [facility] Work Phone: Determination of erythrocyte mean corpuscular volume (MCV)on 07-31-2022 MCV (RBC) [Entitic vol] 88.4 fL 81-99 [facility] Work Phone: Hematocrit Auto (Bld) [Volum e fraction]on 07-31-2022 Hematocrit (Bld) [Volume fraction] 37.2 % 37-47 [facility] Work Phone: Laboratory - Hematology and Cell countson 07-31-2022 Erythrocyte distribution width (RBC) [Entitic vol] 41.8 fL 35.1-43.9 [facility] Work Phone: Erythrocyte distribution width (RBC) [Ratio] 12.9 % 11.6-14.6 [facility] Work Phone: MCH (RBC) [Entitic mass] 29.9 pg 27.0-32.0 [facility] Work Phone: MCHC Auto (RBC) [Mass/Vol]on 07-31-2022 MCHC (RBC) [Mass/Vol] 33.9 g/dL 32-36 [facility] Work Phone: Platelets bldon 07-31-2022 Platelets (Bld) [#/Vol] 228 10*3/uL 150-450 [facility] Work Phone: Absolute lymphocyte counton 12-27-2021 Lymphocytes Auto (Unsp spec) [#/Vol] 1.87 10*3/uL 0.83-4.51 [facility] Work Phone: Basophil percentageon 2021 Basophils/100 WBC (Bld) 0.4 % 0-1 [facility] Work Phone: Eosinophils/100 WBC (Bld) 1.4 % 0-5 [facility] Work Phone: Neutrophils (Bld) [#/Vol] 8.1 10*3/uL 2.0-7.7 [facility] Work Phone: Neutrophils/100 WBC (Bld) 73.6 % 47-70 [facility] Work Phone: WBC (Bld) [#/Vol] 11.0 10*3/uL 4.4-11.0 [facility] Work Phone: Blood erythrocytes count (nu mber/volume)on 12-27-2021 RBC (Bld) [#/Vol] 4.08 10*6/uL 4.2-5.4 [facility] Work Phone: Blood hemoglobin measurement (mass/volume)on 12-27-2021 Hemoglobin (Bld) [Mass/Vol] 12.5 g/dL 12.0-15.0 [facility] Work Phone: Blood lymphocytes/100 leukoc yteson 12-27-2021 Lymphocytes/100 WBC (Bld) 17.0 % 19-41 [facility] Work Phone: Blood monocytes/100 leukocyt eson 12-27-2021 Monocytes/100 WBC (Bld) 7.0 % 0-10 [facility] Work Phone: Blood platelet mean volumeon 12-27-2021 Platelet mean volume (Bld) [Entitic vol] 11.2 fL 6.2-12.0 [facility] Work Phone: Determination of erythrocyte mean corpuscular volume (MCV)on 12-27-2021 MCV (RBC) [Entitic vol] 88.7 fL 81-99 [facility] Work Phone: Hematocrit Auto (Bld) [Volum e fraction]on 12-27-2021 Hematocrit (Bld) [Volume fraction] 36.2 % 37-47 [facility] Work Phone: Laboratory - Hematology and Cell countson 12-27-2021 Erythrocyte distribution width (RBC) [Entitic vol] 42.0 fL 35.1-43.9 [facility] Work Phone: Erythrocyte distribution width (RBC) [Ratio] 12.9 % 11.6-14.6 [facility] Work Phone: Immature granulocytes/100 WBC (Bld) 0.600 % 0.0-0.9 [facility] Work Phone: Comment on above: IG% - Immature Granu locytes (promyelocytes, myelocytes and metamyelocytes) > 1% indicates that a LEFT SHIFT is Present. MCH (RBC) [Entitic mass] 30.6 pg 27.0-32.0 [facility] Work Phone: Nucleated RBC/100 WBC (Bld) [Ratio] 0 % 0-5 [facility] Work Phone: MCHC Auto (RBC) [Mass/Vol]on 12-27-2021 MCHC (RBC) [Mass/Vol] 34.5 g/dL 32-36 [facility] Work Phone: Platelets bldon 12-27-2021 Platelets (Bld) [#/Vol] 235 10*3/uL 150-450 [facility] Work Phone: No Panel Informationon 11-26 Group B Streptococcus Culture Group B Beta Streptococcus is not isolated. [facility] Work Phone: Basophil percentageon 2021 WBC (Bld) [#/Vol] 8.3 10*3/uL 4.4-11.0 [facility] Work Phone: Blood erythrocytes count (nu mber/volume)on 10-01-2021 RBC (Bld) [#/Vol] 3.63 10*6/uL 4.2-5.4 [facility] Work Phone: Blood hemoglobin measurement (mass/volume)on 10-01-2021 Hemoglobin (Bld) [Mass/Vol] 11.4 g/dL 12.0-15.0 [facility] Work Phone: Blood platelet mean volumeon 10-01-2021 Platelet mean volume (Bld) [Entitic vol] 10.5 fL 6.2-12.0 [facility] Work Phone: Determination of erythrocyte mean corpuscular volume (MCV)on 10-01-2021 MCV (RBC) [Entitic vol] 90.1 fL 81-99 [facility] Work Phone: Gestational diabetes screen 1-hour screen with 50g oral glucose loadon 10-01-2021 Glucose 1 Hr post 50 g glucose PO [Mass/Vol] 103 mg/dL 70-140 [facility] Work Phone: Hematocrit Auto (Bld) [Volum e fraction]on 10-01-2021 Hematocrit (Bld) [Volume fraction] 32.7 % 37-47 [facility] Work Phone: Laboratory - Hematology and Cell countson 10-01-2021 Erythrocyte distribution width (RBC) [Entitic vol] 44.1 fL 35.1-43.9 [facility] Work Phone: Erythrocyte distribution width (RBC) [Ratio] 13.4 % 11.6-14.6 [facility] Work Phone: MCH (RBC) [Entitic mass] 31.4 pg 27.0-32.0 [facility] Work Phone: MCHC Auto (RBC) [Mass/Vol]on 10-01-2021 MCHC (RBC) [Mass/Vol] 34.9 g/dL 32-36 [facility] Work Phone: Platelets bldon 10-01-2021 Platelets (Bld) [#/Vol] 221 10*3/uL 150-450 [facility] Work Phone: Serum or plasma ferritin edniz surement (mass/volume)on 10-01-2021 Ferritin [Mass/Vol] 6 ng/mL 8-252 [facility] Work Phone: Vital Signs Date Time Vital Sign Value Performing Clinician Facility 10-04-2022 14:00-0500 Body temperature 98.49 [degF] Emily Lucas APRN.WATER CONTROL SUPERVISOR Work Phone: [facility] 10-04-2022 14:00-0500 Body weight 80.38 kg Emily Lucas APRN.CNP Work Phone: [facility] 10-04-2022 14:00-0500 Diastolic blood pressure 62 mm[Hg] Emily Lucas APRN.WATER CONTROL SUPERVISOR Work Phone: [facility] 10-04-2022 14:00-0500 Heart rate 67 /min Emily Lucas APRN.WATER CONTROL SUPERVISOR Work Phone: [facility] 10-04-2022 14:00-0500 Respiratory rate 18 /min Emily Lucas APRN.WATER CONTROL SUPERVISOR Work Phone: [facility] 10-04-2022 14:00-0500 SaO2% (BldA) [Mass fraction] 98 % Emily Lucas APRN.WATER CONTROL SUPERVISOR Work Phone: [facility] 10-04-2022 14:00-0500 Systolic blood pressure 118 mm[Hg] Emily Lucas APRN.WATER CONTROL SUPERVISOR Work Phone: [facility] 08-06-2022 16:37-0500 Body temperature 97.3 [degF] [facility] Work Phone: 08-06-2022 16:37-0500 Diastolic blood pressure 56 mm[Hg] [facility] Work Phone: 08-06-2022 16:37-0500 Heart rate 56 /min [facility] Work Phone: 08-06-2022 16:37-0500 Respiratory rate 16 /min [facility] Work Phone: 08-06-2022 16:37-0500 SaO2% (BldA) [Mass fraction] 100 % [facility] Work Phone: 08-06-2022 16:37-0500 Systolic blood pressure 127 mm[Hg] [facility] Work Phone: 08-06-2022 13:16-0500 Body height 167.64 cm [facility] Work Phone: 08-06-2022 13:16-0500 Body mass index (BMI) [Ratio] 28.8 kg/m2 [facility] Work Phone: 08-06-2022 13:16-0500 Body weight 81 kg [facility] Work Phone: 12-28-2021 17:48-0400 Diastolic blood pressure 61 mm[Hg] [facility] Work Phone: 12-28-2021 17:48-0400 Heart rate 56 /min [facility] Work Phone: 12-28-2021 17:48-0400 Systolic blood pressure 118 mm[Hg] [facility] Work Phone: 12-28-2021 17:47-0400 Body temperature 97.8 [degF] [facility] Work Phone: 12-28-2021 17:47-0400 Respiratory rate 16 /min [facility] Work Phone: 12-28-2021 17:47-0400 SaO2% (BldA) [Mass fraction] 98 % [facility] Work Phone: 12-27-2021 17:07-0400 Body height 167.64 cm [facility] Work Phone: 12-27-2021 17:07-0400 Body mass index (BMI) [Ratio] 30.7 kg/m2 [facility] Work Phone: 12-27-2021 17:07-0400 Body weight 86.5 kg [facility] Work Phone: 12-14-2021 23:57-0400 Body temperature 98.9 [degF] [facility] Work Phone: 12-14-2021 22:26-0400 Body mass index (BMI) [Ratio] 31 kg/m2 [facility] Work Phone: 12-14-2021 22:26-0400 Body weight 87.25 kg [facility] Work Phone: 12-14-2021 21:57-0400 Diastolic blood pressure 60 mm[Hg] [facility] Work Phone: 12-14-2021 21:57-0400 Heart rate 90 /min [facility] Work Phone: 12-14-2021 21:57-0400 Systolic blood pressure 129 mm[Hg] [facility] Work Phone: Encounters Encounter Date Encounter Type Care Provider Facility Start: 03-19-2025 ambulatory Onel Pierre ty:[facility] Start: 10-04-2022 End: 10-04-2022 ambulatory Facility:[facility] Start: 10-04-2022 End: 10-04-2022 Patient encounter procedure Emily Lucas APRNKrunalWATER CONTROL SUPERVISOR Work Phone: [facility] Comment on above: Bacterial sinusitis (Primary Dx) Start: 08-06-2022 End: 08-06-2022 Admission to same day surgery center [facility] Start: 08-06-2022 End: 08-06-2022 ambulatory [facility] Work Phone: Start: 12-27-2021 End: 12-28-2021 Evaluation and management of inpatient [facility] Start: 12-14-2021 End: 12-15-2021 Patient encounter procedure [facility], Outpatients Start: 11-26-2021 End: 11-26-2021 Patient encounter procedure [facility], Specimen Start: 10-01-2021 End: 10-01-2021 Patient encounter procedure [facility], [place] assistant operations manager Off Procedures Date Procedure Procedure Detail Performing Clinician Start: 08-06-2022 Laparoscopic salpingectomy Start: 12-27-2021 End: 12-27-2021 Viral antigen assay Start: 11-26-2021 Group B Streptococcu s Culture H/O: section Previous c esarean section Plan of Treatment Date Care Activity Detail Author Start: 06-11-2026 PAP TESTING PAP TESTING [facility] Start: 08-09-2022 DEPRESSION ASSESSMENT DEPRESSION ASS ESSMENT [facility] Start: 08-06-2022 Ambulation without limitation [facility] Work Phone: Start: 08-06-2022 Medication education [facility] Work Phone: Start: 08-06-2022 Patient discharge [facility] Work Phone: Start: 08-06-2022 Planned voiding [facility] Work Phone: Start: 08-06-2022 Taking patient vital signs [facility] Work Phone: Start: 08-06-2022 Vital signs measurements [facility] Work Phone: Start: 08-06-2022 [facility] Work Phone: Start: 04-09-2022 Influenza vaccination INFLUENZA (#1) [facility] Start: 2017 HPV TESTING HPV TESTING [facility] Start: 10-20-2015 Urine microalbumin profile DTAP,TDAP,TD (6 - Tdap) [facility] Start: 2005 HEPATITIS C SCREENING HEPATITIS C SC REENING [facility] Start: 2005 HIV SCREENING HIV SCREENING [facility] Start: 1985 COVID-19 VACCINE (#1) COVID-19 VACCI NE (#1) [facility] Patient Education [facility] Work Phone: Patient referral [facility] Work Phone: Immunizations Immunization Date Immunization Notes Care Provider Erlinda jon 03-07-2007 Meningococcal, MCV4, unspecified conjugate formulation(groups A, C, Y and W-135) Emily Lucas CINDER DUMP CRANE OPERATOR.WATER CONTROL SUPERVISOR Work Phone: [facility] 10-19-2005 diphtheria, tetanus toxoids and acellular pertussis vaccine Emily Lucas CINDER DUMP CRANE OPERATOR.WATER CONTROL SUPERVISOR Work Phone: [facility] 03-06-2002 hepatitis B vaccine, pediatric or pediatric/adolescent dosage Emily Lance CINDER DUMP CRANE OPERATOR.WATER CONTROL SUPERVISOR Work Phone: [facility] 02-04-2001 hepatitis B vaccine, pediatric or pediatric/adolescent dosage Emily Lance CINDER DUMP CRANE OPERATOR.WATER CONTROL SUPERVISOR Work Phone: [facility] 02-23-2000 hepatitis B vaccine, pediatric or pediatric/adolescent dosage Emily Lance CINDER DUMP CRANE OPERATOR.WATER CONTROL SUPERVISOR Work Phone: [facility] 02-23-2000 measles, mumps and rubella virus vaccine Emily Lance CINDER DUMP CRANE OPERATOR.WATER CONTROL SUPERVISOR Work Phone: [facility] 03-18-1993 diphtheria, tetanus toxoids and acellular pertussis vaccine Emily Lucas CINDER DUMP CRANE OPERATOR.WATER CONTROL SUPERVISOR Work Phone: [facility] 03-18-1993 trivalent poliovirus vaccine, live, oral Emily Lucas CINDER DUMP CRANE OPERATOR.WATER CONTROL SUPERVISOR Work Phone: [facility] 10-07-1988 haemophilus influenz ae type b vaccine, PRP-D conjugate [facility] CINDER DUMP CRANE OPERATOR.WATER CONTROL SUPERVISOR Work Phone: [facility] 07-21-1988 diphtheria, tetanus toxoids and acellular pertussis vaccine Emily Lance CINDER DUMP CRANE OPERATOR.WATER CONTROL SUPERVISOR Work Phone: [facility] 07-21-1988 measles, mumps and rubella virus vaccine [facility] CINDER DUMP CRANE OPERATOR.WATER CONTROL SUPERVISOR Work Phone: [facility] 07-21-1988 trivalent poliovirus vaccine, live, oral Emily Lucas CINDER DUMP CRANE OPERATOR.WATER CONTROL SUPERVISOR Work Phone: [facility] 1985 DTP-Haemophilus influenzae type b conjugate vaccine [facility] CINDER DUMP CRANE OPERATOR.WATER CONTROL SUPERVISOR Work Phone: [facility] 1985 trivalent poliovirus vaccine, live, oral Emily Lucas CINDER DUMP CRANE OPERATOR.WATER CONTROL SUPERVISOR Work Phone: [facility] 1985 DTP-Haemophilus influenzae type b conjugate vaccine Emily Lance CINDER DUMP CRANE OPERATOR.WATER CONTROL SUPERVISOR Work Phone: [facility] 1985 trivalent poliovirus vaccine, live, oral Emily King CINDER DUMP CRANE OPERATOR.WATER CONTROL SUPERVISOR Work Phone: [facility] Payers Date Payer Category Payer Self-pay [id number] 2022 Unknown [id number] 2022 Unknown MMO [employer] [id number] 2022-Present [phone] [address] [place] [address] Indemnity [id number] Unknown [id number] Unknown [id number] Social History Date Type Detail Facility Start: 12-30-2018 End: 08-04-2022 Tobacco smoking status NHIS Unknown if ever smoked [facility] Work Phone: Start: 02-27-2016 None [facility] Work Phone: Start: 1985 Sex Assigned At Female [facility] Work Phone: Start: 10-04-2022 [facility] Start: 10-04-2022 Tobacco use and exposure Smokeless tobacco non-user [facility] Start: 10-04-2022 Alcohol intake Current non-dr field care advocate of alcohol (finding) [facility] Start: 1985 Sex Assigned At Not on file [facility] Goals Date Patient Goal Desired Activity /State Functional Status Date Assessment Result Facility 08-06-2022 Functional status Ambulates;Bathroom Priv ilege [facility] Work Phone: Mental Status Date Assessment Result Facility 08-06-2022 Cognitive function Voice/Name [facility] Work Phone: Progress note 10-04-2022 Note Date & Type Note Facility 10-04-2022 Note HNO ID: [id number] Author: Emily Lucas APRN.WATER CONTROL SUPERVISOR Service: ? Author Type: Nurse Practitioner Type: [...] CLAVULANATE 125 MG TABLET Emily Lucas APRN.ZONIA [facility] History of Present illness Narrative 10-04-2022 Emily [...] Emily Lucas APRN.ZONIA documented in this encounter [facility] History of Past illness Narrative 03-07-2007 Note Date & Type Note Facility 03-07-2007 History of Past i llness Narrative Problem Noted Date Resolved Date Routine infant or child health check 03/07/2007 09/18/2011 documented as of this encounter (statuses as of 10/04/2022) [facility] Evaluation note Note Date & Type Note Facility Evaluation note No assessment information availa ble [facility] Work Phone: Evaluation note Note Date & Type Note Facility Evaluation note Diagnosis Onset Date False labor, antepartum acut e Vaginal after () acute [facility] Work Phone: Evaluation note Note Date & Type Note Facility Evaluation note Diagnosis Bacterial sinusitis- Primary Unspecified sinusitis (chronic) documented in this encounter [facility] Advance Directives No Advanced Directives Records Found Advance Directive Response Recorded Date/ Time Living Will No December 29, 2018 3 :50am Power of Yarding Engineer No December 29, 2018 3:50am Advance Directive Response Recorded Date/ Time Living Will Yes December 27, 2021 5 :49pm Power of Yarding Engineer Yes December 27, 2021 5:49pm Advance Directive Response Recorded Date/ Time Living Will Yes August 04, 2 022 2:15pm Power of Yarding Engineer Yes August 04, 2022 2:15pm Name of Medical [facility] Yarding Engineer [facility] August 04, 2022 2:15pm Chief Complaint and [...] section and content) DATE CREATED AUTHOR 10/04/2022 [facility] DATE CREATED AUTHOR AUTHOR'S ORGANIZ ATION 03/17/2025 [facility] Source Comments (unrecognize d section and content) In the event this informatio n is protected by the Federal Confidentiality of Alcohol and Drug Abuse Patient Records regulations: The Federal rules restrict any use of the information to criminally investigate or prosecute any alcohol or drug abuse patient.[facility] Reason for Visit (unrecogniz ed section [...] BE BASED ON THE PRIMARY CLINICAL RECORDS. [employer] provides no warranty or guarantee of the accuracy or completeness of information in this document.
[2025-03-19] MEDS: Lactated Ringers 1,000 ML 15 ML IV (11:45)
--- NOTE | 2025-03-19 12:05 | PCM.PRE.AN2 ---
ASA Classification* ASA Classification ASA Classification: 1 Assessment & Plan Anesthesia* Anesthesia Assessment Anesthesia Assessment: Discussed sedation and/or anesthesia options, risks, benefits, and alternatives with patient/parents/legal guardian/POA. Questions invited. The patient/parents/legal guardian/POA seems to understand and agrees to proceed with anesthesia plan. Reviewed the physical assessment, medical history, allergy history and patient home medications list prior to surgery/procedure/anesthetic and documented any changes. Performed airway and anesthesia risk assessments. Anesthesia Type Anesthesia Type: General and Block (Patient is consented for postop pain block.) History Source History Obtained from:: Patient and Chart Anesthesia Focused Assessment* Temperature: 97.7 F Pulse Rate: 57 Blood Pressure: 108/59 Respiratory Rate: 16 Pulse Ox: 100 Oxygen Delivery Method: Room Air Airway Assessment Mouth opens: >3 cm Mallampati Score: I Teeth Condition: Intact Neck Range of motion (ROM): Full ROM Labs Anesthesia Preop lab: CBC WBC 5.0 K/mm3 (4.4-11.0) 07/31/22 10:37 07/31/22 RBC 4.21 M/mm3 (4.2-5.4) 07/31/22 10:37 07/31/22 Hgb 12.6 g/dL (12.0-15.0) 07/31/22 10:37 07/31/22 Hct 37.2 % (37-47) 07/31/22 10:37 07/31/22 Plt Count 228 K/mm3 (150-450) 07/31/22 10:37 07/31/22 CHEMISTRY TSH 0.30 uIU/mL (0.358-3.74) L 06/11/21 16:25 06/11/21 COAG Urine Test Negative Negative 08/06/22 12:44 08/06/22 Pre-Assessment Diagnosis/Proposed Procedure Planned Operative Procedure(s): (L) LEFT KNEE ARTHROSCOPIC MEDIAL MENISCUS REPAIR Anesthesia History Anesthesia History - [facility]: Anesthesia History - [facility] Hx Hospitalization No 03/07/25 08:56 Any Problems With Anesthesia No 03/07/25 08:56 Cholinesterase deficiency No 03/07/25 08:56 You/Your Family Experience No 03/07/25 08:56 fever (hyperthermia) with Relationship Recent Exposure to Contagious No 03/19/25 11:30 Disease Does patient have nerve No 03/07/25 08:56 stimulator Patient instructed to have device shut off --Does patient have Pacemaker No 03/19/25 11:30 or ICD? When Was Last Pacemaker Check QUESTION #4 FULL TEXT: You/Your Family Experience fever (hyperthermia) with Anesthesia Last Oral Intake Last Oral intake: Last Oral Intake NPO since 22:00 03/19/25 11:30 Meds taken in AM with sips of No 03/19/25 11:30 water? 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 Female Yes 03/07/25 08:56 HX of Motion Sickness No 03/07/25 08:56 HX of N/V After Surgery No 03/07/25 08:56 Non-Smoker Yes 03/07/25 08:56 Duration of Surgery greater No 03/07/25 08:56 than 60 minutes Number of Risk Factors 2 03/07/25 08:56 PONV Score Moderate Risk 03/07/25 08:56 Height & Weight Height & Weight: Anesthesia: Height & Weight Height 5 ft 6 in 03/19/25 11:30 Weight: 72 kg 03/19/25 11:30 Body Mass Index (BMI) 25.6 03/19/25 11:30 Respiratory Assessment Respiratory Assessment - [facility]: Respiratory Tract Infection Hx - [facility] hunter Hx Respiratory Tract Infection No 03/07/25 08:56 STOP Sleep Apnea STOP Sleep Apnea - [facility]: STOP Sleep Apnea - [facility] hunter Hx Hypertension No 03/07/25 08:56 Hx Sleep Apnea No 03/07/25 08:56 CPAP BIPAP Do you snore loudly (louder No 03/07/25 08:56 than talking or can be heard Do you often feel tired/ No 03/07/25 08:56 fatigued/ sleepy during daytime? Has anyone observed you stop No 03/07/25 08:56 breathing during sleep? STOP Results Negative 03/07/25 08:56 QUESTION #5 FULL TEXT : Do you snore loudly (louder than talking or can be heard through closed doors)? 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 Specify any problems Hx of Preganancy in last 3 No 03/07/25 08:56 Months Nurse Filling Out Transfusion VLEHMAN 03/07/25 08:56 & Questions: Date: 03/07/25 03/07/25 08:56 Time: 09:02 03/07/25 08:56 Patient unable to answer at this time (ie. 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 Hx Now No 03/07/25 08:56 Gestational Age (in weeks): EDC: Hx Hx Para Hx Section SAB No 03/07/25 08:56 Active Medications Active Medications: Current Medications Generic Name Dose Route Start Last Admin Trade Name Freq PRN Reason Stop Dose Admin Cefazolin Sodium 2 gm/ Sodium 110 mls @ 200 mls/hr 03/19/25 14:50 Chloride IV 03/19/25 15:22 INTRAOP ONE Lactated Ringer's 1,000 mls @ 15 mls/hr 03/19/25 11:30 03/19/25 11:45 IV 15 mls/hr .Q48H JENNIFER Administration PFSH Medical History Non-smoker History of eustachian tube dysfunction ACL (anterior cruciate ligament) tear Vaginal after () Home Medications ?Medication ?Instructions ?Recorded ?Last Taken ?Type multivitamin 1 tab PO DAILY 08/04/22 Unknown History Allergy/AdvReac Type Severity Reaction Status Date / Time Sulfa (Sulfonamide Allergy Hives Verified 03/19/25 11:29 Antibiotics) Family History Aunt Cancer Grandfather Emphysema lung Surgical History History of bilateral salpingectomy History of myringotomy History of anterior cruciate ligament surgery [place] teeth removed History of tonsillectomy and adenoidectomy Social History Smoking Status: Never smoker Review of Systems (Anesthesia) ROS Narrative System reviewed and no additional complaints, except as documented.
--- NOTE | 2025-03-19 12:05 | PCM.PRE.AN2 ---
ASA Classification* ASA Classification ASA Classification: 1 Assessment & Plan Anesthesia* Anesthesia Assessment Anesthesia Assessment: Discussed sedation and/or anesthesia options, risks, benefits, and alternatives with patient/parents/legal guardian/POA. Questions invited. The patient/parents/legal guardian/POA seems to understand and agrees to proceed with anesthesia plan. Reviewed the physical assessment, medical history, allergy history and patient home medications list prior to surgery/procedure/anesthetic and documented any changes. Performed airway and anesthesia risk assessments. Anesthesia Type Anesthesia Type: General and Block (Patient is consented for postop pain block.) History Source History Obtained from:: Patient and Chart Anesthesia Focused Assessment* Temperature: 97.7 F Pulse Rate: 57 Blood Pressure: 108/59 Respiratory Rate: 16 Pulse Ox: 100 Oxygen Delivery Method: Room Air Airway Assessment Mouth opens: >3 cm Mallampati Score: I Teeth Condition: Intact Neck Range of motion (ROM): Full ROM Labs Anesthesia Preop lab: CBC WBC 5.0 K/mm3 (4.4-11.0) 07/31/22 10:37 07/31/22 RBC 4.21 M/mm3 (4.2-5.4) 07/31/22 10:37 07/31/22 Hgb 12.6 g/dL (12.0-15.0) 07/31/22 10:37 07/31/22 Hct 37.2 % (37-47) 07/31/22 10:37 07/31/22 Plt Count 228 K/mm3 (150-450) 07/31/22 10:37 07/31/22 CHEMISTRY TSH 0.30 uIU/mL (0.358-3.74) L 06/11/21 16:25 06/11/21 COAG Urine Test Negative Negative 08/06/22 12:44 08/06/22 Pre-Assessment Diagnosis/Proposed Procedure Planned Operative Procedure(s): (L) LEFT KNEE ARTHROSCOPIC MEDIAL MENISCUS REPAIR Anesthesia History Anesthesia History - [facility]: Anesthesia History - [facility] Hx Hospitalization No 03/07/25 08:56 Any Problems With Anesthesia No 03/07/25 08:56 Cholinesterase deficiency No 03/07/25 08:56 You/Your Family Experience No 03/07/25 08:56 fever (hyperthermia) with Relationship Recent Exposure to Contagious No 03/19/25 11:30 Disease Does patient have nerve No 03/07/25 08:56 stimulator Patient instructed to have device shut off --Does patient have Pacemaker No 03/19/25 11:30 or ICD? When Was Last Pacemaker Check QUESTION #4 FULL TEXT: You/Your Family Experience fever (hyperthermia) with Anesthesia Last Oral Intake Last Oral intake: Last Oral Intake NPO since 22:00 03/19/25 11:30 Meds taken in AM with sips of No 03/19/25 11:30 water? Meds patient instructed to take am of surgery PONV PONV - [facility]: PONV - [facility] Female Yes 03/07/25 08:56 HX of Motion Sickness No 03/07/25 08:56 HX of N/V After Surgery No 03/07/25 08:56 Non-Smoker Yes 03/07/25 08:56 Duration of Surgery greater No 03/07/25 08:56 than 60 minutes Number of Risk Factors 2 03/07/25 08:56 PONV Score Moderate Risk 03/07/25 08:56 Height & Weight Height & Weight: Anesthesia: Height & Weight Height 5 ft 6 in 03/19/25 11:30 Weight: 72 kg 03/19/25 11:30 Body Mass Index (BMI) 25.6 03/19/25 11:30 Respiratory Assessment Respiratory Assessment - [facility]: Respiratory Tract Infection Hx - [facility] Hx Respiratory Tract Infection No 03/07/25 08:56 STOP Sleep Apnea STOP Sleep Apnea - [facility]: STOP Sleep Apnea - [facility] Hx Hypertension No 03/07/25 08:56 Hx Sleep Apnea No 03/07/25 08:56 CPAP BIPAP Do you snore loudly (louder No 03/07/25 08:56 than talking or can be heard Do you often feel tired/ No 03/07/25 08:56 fatigued/ sleepy during daytime? Has anyone observed you stop No 03/07/25 08:56 breathing during sleep? STOP Results Negative 03/07/25 08:56 QUESTION #5 FULL TEXT : Do you snore loudly (louder than talking or can be heard through closed doors)? 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 Specify any problems Hx of Preganancy in last 3 No 03/07/25 08:56 Months Nurse Filling Out Transfusion [facility]LE[facility]MAN 03/07/25 08:56 & Questions: Date: 03/07/25 03/07/25 08:56 Time: 09:02 03/07/25 08:56 Patient unable to answer at this time (ie. confused, unrespo /Reproduction History /Reproductive History - [facility]: /Reproductive Hx- [facility] Hx Now No 03/07/25 08:56 Gestational Age (in weeks): EDC: Hx Hx Para Hx Section SAB No 03/07/25 08:56 Active Medications Active Medications: Current Medications Generic Name Dose Route Start Last Admin Trade Name Freq PRN Reason Stop Dose Admin Cefazolin Sodium 2 gm/ Sodium 110 mls @ 200 mls/hr 03/19/25 14:50 Chloride IV 03/19/25 15:22 INTRAOP ONE Lactated Ringer's 1,000 mls @ 15 mls/hr 03/19/25 11:30 03/19/25 11:45 IV 15 mls/hr .Q48H JENNIFER Administration PFSH Medical History Non-smoker History of eustachian tube dysfunction ACL (anterior cruciate ligament) tear Vaginal after () Home Medications ?Medication ?Instructions ?Recorded ?Last Taken ?Type multivitamin 1 tab PO DAILY 08/04/22 Unknown History Allergy/AdvReac Type Severity Reaction Status Date / Time Sulfa (Sulfonamide Allergy Hives Verified 03/19/25 11:29 Antibiotics) Family History Aunt Cancer Grandfather Emphysema lung Surgical History History of bilateral salpingectomy History of myringotomy History of anterior cruciate ligament surgery [place] teeth removed History of tonsillectomy and adenoidectomy Social History Smoking Status: Never smoker Review of Systems (Anesthesia) ROS Narrative System reviewed and no additional complaints, except as documented.
[2025-03-19] MEDS: Lactated Ringers 1,000 ML 1000 ML IV (12:20)
[2025-03-19] MEDS: Midazolam 2 MG/2 ML Syringe IV (12:21)
[2025-03-19] MEDS: Lidocaine 2% (5ml sdv) 5 ML VIAL.MPF IV (12:21)
[2025-03-19] MEDS: fentaNYL 100 MCG/2 ML Ampul IV (12:28)
[2025-03-19] MEDS: Cefazolin 1 GM/5 ML Vial 2 GM IV (12:30)
[2025-03-19] MEDS: Epinephrine (1 mg/ml) 1 MG/ML VIAL (12:52)
[2025-03-19] MEDS: Bupiv/Epi 0.25% 30 ML Vial (13:08)
--- NOTE | 2025-03-19 13:14 | OP.PCM_ITS ---
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 Head College Or [employer]: Tomasa Breen Tasks completed by first line production supervisor: Opening & closing, Implanting device and Retracting Type of Anesthesia: General RN Documented Start/Stop Times: Operation Date: 03/19/25 12:30 Case Time Into Pre-Op 03/19/25 11:15 Anesthesia Start 03/19/25 12:17 Into Room 03/19/25 12:17 Procedure Start 03/19/25 12:37 Procedure Start Time: 12:37 Procedure Stop Time: 13:15 Select all DRAINS/GRAFTS/IMPLANTS that apply: Implanted device Implanted device details: Arthrex fiber stitch x 5 Estimated Blood Loss: 2 cc Specimen collected: No Description of surgery: Patient was greeted in the same-day surgery area. She was identified by name, medical record number, and date of . The operative extremity was marked. All questions were answered to the patient's satisfaction. Patient was then brought to the op suite positioned supine on center operating table. General anesthesia was induced and LMA placed. All bony prominences were well-padded. Well-padded pneumatic tourniquet was applied to the left upper thigh. Arthroscopic leg marino was placed circumferentially around the left side. Well-leg marino was placed on the patient's right side. Foot of bed was dropped 90 degrees. We prepped and draped the left lower extremity in a normal, sterile orthopedic fashion. A timeout was called confirming the side, site, and operation be performed. No concerns were voiced and we elected to proceed with surgery. 2 g Ancef was administered IV prior to tourniquet placed by anesthesia staff. I then exsanguinated the left lower extremity with Esmarch bandage. Tourniquet inflated to 250 mmHg for 28 minutes. Esmarch was removed. Standard anterolateral portal was then established. Blunt tipped trocar was used to enter the knee joint and driven into the patellofemoral compartment. Knee was filled with normal saline with epinephrine via arthroscopic cannula. Arthroscope was introduced. Patellofemoral compartment was pristine. Medial and lateral gutters were pristine. Medial compartment was entered with valgus stress. Displaced bucket-handle tear into the intercondylar notch was noted. Anterior medial portal was then established. Blunt tipped trocar was used to reduce the fragment anatomically. Intercondylar notch was then examined and pristine. Lateral compartment was examined and was pristine. A rasp was then introduced to debride the tear site to induce bleeding and subsequent healing. A slide was introduced to help with needle placement for all inside repair. Sequentially, 5 fiber stitch vertical mattress sutures were placed from proximal to anterior ending at the anterior horn-body junction. The tear appeared to be anatomically reduced and stable following final fixation. The knee was thoroughly lavaged. Medial compartment cartilage was pristine. Instruments were removed. Tourniquet deflated. Field block administered 10 cc quarter percent bupivacaine with epinephrine. Bulky sterile compression dressing was applied. Patient was placed in a T ROM brace. She was extubated in the operative suite and transferred to her gurney and subsequently to PACU in stable condition. She tolerated the procedure well without apparent complication. Need for skilled respiratory therapist assistant: Tomasa Breen PA-C was critical to the outcome of the case. During the course of the procedure the physician respiratory therapist assistant played a vital role. Her intimate knowledge of my steps in the procedure aided in safe and expedient completion of the procedure. The PA played a vital role in positioning particularly in obtaining the appropriate positioning. The PA was also vital in the retraction of soft tissues during the exposure and protecting vital structures. The PA was also vital and obtaining meniscus reduction and assisting with device placement. She also played a vital role in closure and brace application with my direct supervision. Postoperative plan: Hinged knee brace locked in full extension when weightbearing, weightbearing as tolerated. Range of motion 0-90 degrees when seated or supine. Physical therapy to start in 1 to 2 weeks. Aspirin 81 mg twice daily for DVT prophylaxis x 6 weeks postoperatively. Multimodal pain management oxycodone, Tylenol and ibuprofen. Follow-up in 2 weeks for suture removal. Surgical Findings: Displaced medial meniscus bucket-handle tear. Stable following fixation. Complications Complications: No Admit VTE Documentation VTE Present on Admission: No VTE Mechan Device Prophylaxis: SCD's and Thigh High TRANG Hose VTE Pharm Prophylaxis ordered?: Yes
== END 2025-03-19 15:33 | disposition home or self-care (01) ==
LOC: SDC 11:10 → AC 11:11
PROVIDERS: Referring Provider Student in an Organized Health Care Education/Training Program; Visit Provider Student in an Organized Health Care Education/Training Program
PROC: (CPT 29870; principal; 2025-03-19 12:10)
DX: S83.212A Bucket-handle tear of medial meniscus, current injury, left knee, initial encounter (principal); S83.412A Sprain of medial collateral ligament of left knee, initial encounter; S83.512A Sprain of anterior cruciate ligament of left knee, initial encounter; M22.42 Chondromalacia patellae, left knee; X58.XXXA Exposure to other specified factors, initial encounter; Y93.6A Activity, physical games generally associated with school recess, summer camp and children; R03.0 Elevated blood-pressure reading, without diagnosis of hypertension
CPT/HCPCS: 29882; 01400; 64448; J2405